=== PATIENT | female | born 1935 | race Caucasian/White ===

== ENCOUNTER → 2023-09-25 14:48 | Outpatient (REF) | payer MEDICARE, BC, SELFPAY | LOC: DHCBS HW 14:48 | PROVIDERS: ATTENDING PHYSICIAN Internal Medicine Cardiovascular Disease; FAMILY PHYSICIAN Family Medicine | DX: I35.0 Nonrheumatic aortic (valve) stenosis (principal) | CPT/HCPCS: 93306 ==

== ENCOUNTER → 2023-10-21 13:52 | Outpatient (REF) | payer MEDICARE, BC, SELFPAY | LOC: RAD 13:52 | PROVIDERS: ATTENDING PHYSICIAN Internal Medicine Cardiovascular Disease; FAMILY PHYSICIAN Family Medicine | DX: R09.89 Other specified symptoms and signs involving the circulatory and respiratory systems (principal) | CPT/HCPCS: 93880 ==

== ENCOUNTER → 2023-11-13 11:52 | Outpatient (REF) | payer MEDICARE, BC, SELFPAY ==
[2023-11-13 14:48] LABS: Hematocrit 35.7 % (37.0-47.0); Hemoglobin 11.9 g/dL (12.0-16.0); Mean Corp Hgb Conc. 33.3 g/dL (33.0-37.0); Mean Corpuscular Hgb 30.8 pg (27.0-31.0); Mean Corpuscular Volume 92.5 fL (81.0-99.0); Platelet Count 344 10^3/uL (130-400); Red Blood Cell Count 3.86 10^6/uL (4.20-5.40); Red Cell Dist. Width 13.3 % (11.5-14.5); White Blood Cell Count 7.8 10^3/uL (4.8-10.8)
[2023-11-13 15:27] LABS: ALT (SGPT) 18 U/L (0-35); AST (SGOT) 27 U/L (14-36); Albumin 4.2 g/dl (3.5-5.0); Alkaline Phosphatase 51 U/L (38-126); Blood Urea Nitrogen 27 mg/dl (7-17); Calcium 9.7 mg/dl (8.4-10.2); Carbon Dioxide 30 mmol/L (22-30); Chloride 100 mmol/L (98-107); Glucose 182 mg/dl (70-99); Potassium 4.7 mmol/L (3.5-5.1); Sodium 135 mmol/L (135-145); Total Bilirubin 0.5 mg/dl (0.2-1.3); Total Protein 7.1 g/dl (6.3-8.2); eGFR > 60.00
[2023-11-13 15:53] LABS: TSH 1.93 uIU/ml (0.47-4.68)
[2023-11-14 08:59] LABS: Glycohemoglobin (HgbA1c) 7.8 % (4.0-5.6)
== END ==
LOC: HWLAB 11:52
PROVIDERS: ATTENDING PHYSICIAN Physician Assistant; FAMILY PHYSICIAN Family Medicine
DX: E11.65 Type 2 diabetes mellitus with hyperglycemia (principal)
CPT/HCPCS: 36415; 80053; 83036; 84443; 85027

== ENCOUNTER → 2024-01-12 12:04 | Outpatient (REF) | payer MEDICARE, BC, SELFPAY | LOC: HWRAD 12:04 | PROVIDERS: ATTENDING PHYSICIAN Nurse Practitioner Family | DX: J06.9 Acute upper respiratory infection, unspecified (principal) | CPT/HCPCS: 71046 ==

== ENCOUNTER → 2024-03-18 12:16 | Outpatient (REF) | payer MEDICARE, BC, SELFPAY ==
[2024-03-18 16:10] LABS: Hematocrit 34.3 % (37.0-47.0); Hemoglobin 11.6 g/dL (12.0-16.0); Mean Corp Hgb Conc. 33.8 g/dL (33.0-37.0); Mean Corpuscular Volume 94.5 fL (81.0-99.0); Mean Platelet Volume 11.4 fL (7.4-10.4); Platelet Count 332 10^3/uL (130-400); Red Blood Cell Count 3.63 10^6/uL (4.20-5.40); Red Cell Dist. Width 12.9 % (11.5-14.5); White Blood Cell Count 8.7 10^3/uL (4.8-10.8)
[2024-03-18 16:14] LABS: ALT (SGPT) 20 U/L (0-35); AST (SGOT) 28 U/L (14-36); Albumin 4.1 g/dl (3.5-5.0); Alkaline Phosphatase 69 U/L (38-126); Blood Urea Nitrogen 22 mg/dl (7-17); Calcium 9.5 mg/dl (8.4-10.2); Carbon Dioxide 29 mmol/L (22-30); Chloride 99 mmol/L (98-107); Glucose 191 mg/dl (70-99); Potassium 4.7 mmol/L (3.5-5.1); Sodium 139 mmol/L (135-145); Total Bilirubin 0.5 mg/dl (0.2-1.3); Total Protein 6.7 g/dl (6.3-8.2); eGFR > 60.00
[2024-03-18 16:43] LABS: TSH 1.75 uIU/ml (0.47-4.68)
[2024-03-19 09:40] LABS: Glycohemoglobin (HgbA1c) 8.1 % (4.0-5.6)
== END ==
LOC: HWLAB 12:16
PROVIDERS: ATTENDING PHYSICIAN Physician Assistant; FAMILY PHYSICIAN Family Medicine
DX: E11.65 Type 2 diabetes mellitus with hyperglycemia (principal)
CPT/HCPCS: 36415; 80053; 83036; 84443; 85027

== ENCOUNTER → 2024-07-20 13:43 | Outpatient (REF) | payer MEDICARE, BC, SELFPAY ==
[2024-07-20 15:38] LABS: Hematocrit 35.7 % (37.0-47.0); Hemoglobin 11.3 g/dL (12.0-16.0); Mean Corp Hgb Conc. 31.7 g/dL (33.0-37.0); Mean Corpuscular Hgb 31.4 pg (27.0-31.0); Mean Corpuscular Volume 99.2 fL (81.0-99.0); Mean Platelet Volume 10.7 fL (7.4-10.4); Platelet Count 413 10^3/uL (130-400); Red Cell Dist. Width 13.3 % (11.5-14.5); White Blood Cell Count 8.2 10^3/uL (4.8-10.8)
[2024-07-20 15:57] LABS: ALT (SGPT) 25 U/L (0-35); AST (SGOT) 26 U/L (14-36); Albumin 4.2 g/dl (3.5-5.0); Alkaline Phosphatase 75 U/L (38-126); Blood Urea Nitrogen 18 mg/dl (7-17); Calcium 9.4 mg/dl (8.4-10.2); Carbon Dioxide 25 mmol/L (22-30); Chloride 99 mmol/L (98-107); Glucose 141 mg/dl (70-99); Potassium 4.6 mmol/L (3.5-5.1); Sodium 135 mmol/L (135-145); Total Bilirubin 0.5 mg/dl (0.2-1.3); eGFR > 60.00
[2024-07-21 08:58] LABS: Glycohemoglobin (HgbA1c) 7.6 % (4.0-5.6)
== END ==
LOC: HWLAB 13:43
PROVIDERS: ATTENDING PHYSICIAN Physician Assistant; FAMILY PHYSICIAN Family Medicine
DX: E11.65 Type 2 diabetes mellitus with hyperglycemia (principal)
CPT/HCPCS: 36415; 80053; 83036; 85027

== ENCOUNTER 2024-08-25 12:43 | Outpatient (RCR) | payer SELFPAY | END 2024-08-25 23:59 | disposition home or self-care (01) | LOC: ROT 12:43 | PROVIDERS: ATTENDING PHYSICIAN Family Medicine | DX: Z02.4 Encounter for examination for driving license (principal) ==

== ENCOUNTER → 2024-10-11 10:07 | Outpatient (REF) | payer MEDICARE, BC, SELFPAY | LOC: HWRAD 10:07 | PROVIDERS: ATTENDING PHYSICIAN Internal Medicine Critical Care Medicine; FAMILY PHYSICIAN Family Medicine | DX: R06.09 Other forms of dyspnea (principal) | CPT/HCPCS: 71250 ==

== ENCOUNTER → 2025-01-10 13:01 | Outpatient (REF) | payer MEDICARE, BC, SELFPAY | LOC: HWRCS 13:01 | PROVIDERS: ATTENDING PHYSICIAN Internal Medicine Cardiovascular Disease; FAMILY PHYSICIAN Family Medicine | DX: I35.0 Nonrheumatic aortic (valve) stenosis (principal); I34.2 Nonrheumatic mitral (valve) stenosis | CPT/HCPCS: 93306 ==

== ENCOUNTER → 2025-01-25 09:16 | Outpatient (REF) | payer MEDICARE, BC, SELFPAY ==
[2025-01-25 12:31] LABS: Hematocrit 30.7 % (37.0-47.0); Hemoglobin 10.1 g/dL (12.0-16.0); Mean Corp Hgb Conc. 32.9 g/dL (33.0-37.0); Mean Corpuscular Volume 96.8 fL (81.0-99.0); Platelet Count 388 10^3/uL (130-400); Red Cell Dist. Width 13.4 % (11.5-14.5)
[2025-01-25 12:43] LABS: ALT (SGPT) 19 U/L (0-35); AST (SGOT) 20 U/L (14-36); Albumin 4.1 g/dl (3.5-5.0); Alkaline Phosphatase 59 U/L (38-126); Blood Urea Nitrogen 20 mg/dl (7-17); Calcium 9.1 mg/dl (8.4-10.2); Carbon Dioxide 28 mmol/L (22-30); Chloride 103 mmol/L (98-107); Glucose 229 mg/dl (70-99); Potassium 5.0 mmol/L (3.5-5.1); Sodium 136 mmol/L (135-145); Total Protein 6.7 g/dl (6.3-8.2); eGFR > 60.00
[2025-01-25 13:01] LABS: Glycohemoglobin (HgbA1c) 7.8 % (4.0-5.6)
== END ==
LOC: HWLAB 09:16
PROVIDERS: ATTENDING PHYSICIAN Physician Assistant; FAMILY PHYSICIAN Family Medicine
DX: E11.65 Type 2 diabetes mellitus with hyperglycemia (principal)
CPT/HCPCS: 36415; 80053; 83036; 85027

== ENCOUNTER 2025-02-17 12:42 | Inpatient (IN) | payer MEDICARE, BC, SELFPAY ==
[2025-02-17] VITALS (8 sets, daily range): BP systolic 111–142; BP diastolic 55–64; BMI 21.1; BMI 20.2
[2025-02-17 07:44] LABS: Glucose - Point of Care 275 mg/dl (70-99)
--- NOTE | 2025-02-17 08:31 | ED.GENMED ---
History of Present Illness
General
Chief Complaint: Weakness
Source: patient and family (Daughter at bedside)
Exam Limitations: none
Time Seen by Provider: 02/17/25 08:00
Nursing documentation reviewed up to this point in time: agreed with
History of Present Illness
History of Present Illness:
Patient is an 89-year-old female with history of hypertension, insulin-dependent diabetes who presents to the emergency department for evaluation of headache, lightheadedness, and shortness of breath over the past few days. She reports worsening
shortness of breath over the past few days, especially when laying flat as well as a productive cough with yellow-colored sputum. Patient states that she has had intermittent lightheadedness and nausea over the past few days. She has felt somewhat
unsteady on her feet and feels like she is walking 'like a drunk adoption agent'. She denies any spinning sensation or dizziness however does have a headache.
Patient denies any known fevers. No exertional chest pain. No lower leg swelling or edema.
She is an insulin-dependent diabetic and states that her sugars have been running high over the past few days.
She does have a history of heart failure however has not noticed any recent weight changes or swelling in her lower extremities.
Patient lives at home with her daughter.
Past History
Past History
ED Past Medical History: HTN, NIDDM, Psychiatric (Anxiety) and Other (Hepatitis A)
ED Past Surgical History: Appendectomy, Cholecystectomy and Gynecological (HYSTERECTOMY)
Social History
Tobacco: Non-smoker
Alcohol: None
Drug: None
Personal:
Living: with family
Family History
Family History: Other (Reviewed and noncontributory)
Review of Systems
Review of Systems
Allergies reviewed?: Yes
All Other Systems: ROS reviewed and negative except as documented in HPI and ROS
Phy Exam
Physical Exam
Physical Exam:
Vitals: Hypoxic to 87% on room air. Mildly hypertensive. Afebrile
General: Patient is in no distress.
Skin: Warm and dry, no rashes or lesions
Head: Normocephalic, atraumatic
Eyes: Sclera nonicteric. EOMs intact. No nystagmus.
Throat: Dry mucous membranes. Protecting airway
Neck: Normal ROM, no cervical spine tenderness, no meningismus
Cardiac: Regular rate and rhythm, no murmurs. Systolic ejection murmur noted
Pulm: Hypoxic, placed on 3 L nasal cannula. Coarse breath sounds bilaterally. No wheeze.
Abdomen: Abdomen soft and nontender.
Extremities: No evidence of cyanosis or edema. 2+ palpable DP pulses bilaterally
Neuro: AAOx3. Grossly intact.
Psychiatric: Normal affect.
Sepsis
Sepsis Screening
Sepsis Assessment: Sepsis Ruled Out
Sepsis Screen
Sepsis Screen: Sepsis Ruled Out
Date: 02/17/25
Time: 19:07
Course
Orders/Labs/Results
Orders:
Orders
02/17/25 07:58
Complete Blood Count/With Diff Urgent
Comprehensive Metabolic Panel Urgent
02/17/25 08:01
CR Chest - 2 Views Urgent
Comment:
Reason For Exam: suspected infection
02/17/25 08:11
EKG [Electrocardiogram (*1)] Urgent
Reason for Study: Chest Pain
EKG- Treatment ONCE
02/17/25 08:18
Acetaminophen [Tylenol] 650 mg PO NOW STA
02/17/25 08:19
CT Head W/o Iv Contrast Urgent
Comment:
Reason For Exam: Headache, ataxia
02/17/25 08:25
COVID-19 Antigen Urgent
Source: Nasal Swab
NT-proBNP Urgent
Troponin I Urgent
Influenza A+B Rapid Molecular Urgent
ANNA Source: Nasal Swab
Specimen Description:
02/17/25 Lunch
1800 calorie (15 carb) Diabetic
At Your Request: Limited Participation
Does patient need a safe tray?: No
02/17/25 10:04
Aztreonam [Azactam] 2,000 mg IV NOW STA
02/17/25 10:57
Urinalysis Reflex To Culture Urgent
Date Specimen was Collected: 02/17/25
Time Specimen was Collected: 10:56
Urine Microscopic Reflex Cult Urgent
02/17/25 11:13
Clindamycin 600 mg/50 ml [Cleocin] 600 mg in 50 ml IV NOW
02/17/25 12:03
CefTRIAXone [Rocephin] 1,000 mg IV NOW STA
02/17/25 12:08
Furosemide [Lasix] 40 mg IV NOW STA
02/17/25 12:09
Admit/Transfer Patient As Directed
Co-Sign Provider:
Level of Care: Inpatient admission
Assign to:: Medical/Surgical
Physician / Group: Dr. Johnson
Diagnosis: Sepsis
Reason for Hospitalization: Sepsis Pneumonia
Expected length of stay greater than two midnights?: Yes
ELOS- Estimated Length of Stay in days: 3
I certify the patient meets the requirements for IP care: Yes
PRN Pain Medication Management As Directed
May give lesser potent ordered pain med per pt: Yes
preference::
Protocol:: Medication orders for pain may be administered in a
manner that supports deferring to patient preference
when the pt is:
- Requesting an ordered lesser potent pain medication.
Least to most potent pain medications are defined
as: acetaminophen < NSAID < tramadol < opioids
(morphine, oxycodone, hydromorphone).
- Requesting a lesser dose of the same medication IF
ORDERED.
- Requesting a less intrusive route of administration
if both routes are prescribed by the provider (PO <
IV).
02/17/25 12:12
Code Status As Directed
Resuscitation Status: Do not resuscitate
Reached after discussion with pt or family/Healthcare POA: Yes
DNR Bracelet Application ONCE
02/17/25 12:20
Blood Culture Q30M
ANNA Source: Blood/Venous
Specimen Description:
Comment: IF NOT OBTAINED IN ED
Blood Culture Q30M
ANNA Source: Blood/Venous
Specimen Description:
Comment: IF NOT OBTAINED IN ED
02/17/25 12:27
Sterile Water [Sterile Water For Injection] 10 ml .ROUTE .STK-MED ONE
02/17/25 13:52
Acetaminophen [Tylenol] 650 mg PO Q4HPRN PRN
Albuterol [ProAIR HFA INHALER] 2 puff INH R Q6HPRN PRN sob
Bisacodyl [Dulcolax] 10 mg RECTAL [id number] PRN
Dextrose 50%-Water [Dextrose 50% Syringe] 12.5 grams IV [id number] PRN
Docusate W/Senna [Senokot-S] 1 tablet PO BIDPRN PRN
Glucagon [GlucaGen] 1 mg IM PRN PRN
Ondansetron Injectable [Zofran] 4 mg IV Q6HPRN PRN
Polyethylene Glycol Powder [Miralax] 17 grams PO DAILYPRN PRN
insulin glargine [Lantus Solostar U-100 Insulin] 13 unit SC DAILY
02/17/25 13:52
Activity As Directed
Activity Level: As Tolerated
Bedside Glucose Monitoring As Directed
Frequency: AC&HS
Additional Instructions:: Change to q6h if pt on TPN, tube feeding or not eating
Intake/ Output As Directed
Frequency: Per unit guidelines
Vital Signs As Directed
Frequency: Per unit guidelines
Wound Care As Directed
Location of Wound: R ankle
Treatment of Wound: Cleanse and bandage
O2 Therapy [RESP] Routine
Titrate/Wean O2 to maintain O2 sat greater than (%): 92
Pulse Ox/spot Check [RESP] Routine
Quantity: 1
Special Instructions: pulse oximetry on admision then every shift if on oxygen
call if oxygen saturation < ___ %
DX Deep Vein Thrombosis Video Routine
02/17/25 16:30
Insulin Aspart Corrective Low [Novolog Flexpen-Low Resistance] See Protocol SC AC
02/17/25 18:00
Atorvastatin [Lipitor] 20 mg PO QPM
Enoxaparin Sodium [Lovenox] 40 mg SC QPM
02/17/25 20:00
Budesonide/Formoterol 160/4.5 [Symbicort 160/4.5 Mcg Inhaler] 2 puff INH R BID
Carvedilol [Coreg] 3.125 mg PO BID
02/17/25 22:00
Losartan [Cozaar] 25 mg PO HS
02/18/25 06:00
Basic Metabolic Panel IN AM
Complete Blood Count/With Diff IN AM
Glycohemoglobin (HgbA1c) IN AM
Lactic Acid IN AM
02/18/25 08:00
Fluoxetine HCl [Prozac] 40 mg PO DAILY
Abnormal Lab Results
02/17/25 02/17/25 02/17/25
07:43 07:58 10:57
WBC 15.1 H 10^3/uL
(4.8-10.8)
RBC 2.75 L 10^6/uL
(4.20-5.40)
Hgb 8.9 L g/dL
(12.0-16.0)
Hct 25.9 L %
(37.0-47.0)
MCH 32.4 H pg
(27.0-31.0)
Plt Count 429 H 10^3/uL
(130-400)
MPV 10.6 H fL
(7.4-10.4)
Abs Immat Gran (auto) 0.1 H 10^3/uL
(0-0.05)
Absolute Neuts (auto) 12.4 H 10^3/uL
(1.4-6.5)
Absolute Lymphs (auto) 0.9 L 10^3/uL
(1.2-3.4)
Absolute Monos (auto) 1.6 H 10^3/uL
(0.1-0.6)
Neutrophils % 82.4 H %
(42.2-75.2)
Lymphocytes % 6.0 L %
(20.5-51.1)
Monocytes % 10.5 H %
(1.7-9.3)
Sodium 132 L mmol/L
(135-145)
Glucose 271 H mg/dl
(70-99)
Calcium 8.3 L mg/dl
(8.4-10.2)
Urine Ketones 3+ A
(Negative)
Urine Bacteria (Reflex) Few A
(Negative)
Urine Glucose 4+ A
(Negative)
Urine Albumin (Reflex) 2+ A
(Neg - Trace)
POC Glucose 275 H mg/dl
(70-99)
02/17/25 07:58
02/17/25 07:58
Vital Signs
Initial and Last Documented VS:
Initial Vital Signs
Temp Pulse Resp BP Pulse Ox
99.1 F 89 18 140/59 95
02/17/25 07:40 02/17/25 07:40 02/17/25 07:40 02/17/25 07:40 02/17/25 07:40
Last Documented Vital Signs
Temp Pulse Resp BP Pulse Ox
100.2 F 90 16 142/64 96
02/17/25 18:26 02/17/25 14:03 02/17/25 14:03 02/17/25 14:03 02/17/25 14:16
MDM/Problems Addressed
Differential Diagnosis Includes:
Not limited to: Acute CHF exacerbation, bronchitis, pneumonia, acute dehydration, orthostatic hypotension, viral illness, etc.
MDM/Problems Addressed:
89-year-old female presenting with generalized weakness, lightheadedness, shortness of breath over the past few days. No known fever. She does have productive cough. No exertional or pleuritic chest pain. On arrival�patient hypoxic to 87% on
room air and placed on 3 L NC. She is afebrile with otherwise stable vital signs. Lung exam with coarse breath sounds bilaterally however no wheeze. Regular rate and rhythm with normal heart sounds. Abdomen benign. No focal neurologic deficits
noted. No lower extremity edema noted.
Differential broad. Concern for possible infectious etiology including pneumonia, bronchitis. Other considerations would be CHF exacerbation, dehydration, etc. ED plan: Labs, cardiac enzymes, proBNP. Will obtain UA. Will check viral studies,
chest x-ray and head CT given headache
Update: Labs significant for leukocytosis of 15.1 with anemia and hemoglobin of 8.9 which is subtle drop from prior. Chemistry with hyperglycemia noted. Troponin undetectable. proBNP of 3380. Chest x-ray reveals diffuse bilateral pneumonia.
Head CT without acute findings.
Overall impression is likely bilateral pneumonia requiring supplemental O2. Patient will require admission to hospital for IV antibiotics, continued supportive oxygen therapy. Patient with multiple allergies�will start a aztreonam and clindamycin.
Possible mild CHF exacerbation as well however no evidence of fluid overload on exam�will hold diuretics at this time.
Patient accepted to hospitalist service in stable condition
Chronic conditions affecting care:
Hypertension, insulin-dependent diabetes
Acute Exacerbation and/or Progression of Chronic Illness:
Acutely hypertensive, acutely hyperglycemic
*Radiology
Radiology exam reviewed: preliminary read by ED provider (Chest x-ray reviewed by fl-pulmonary edema and suspected left lower lobe pneumonia) and radiology read reviewed
*Pulse Oximetry
SaO2: 95
Nasal Cannula flow liters per minute: 2
Patient hypoxic: yes
*EKG
Interpreted by ED Provider?: Yes
EKG Intrepretation Date: 02/17/25
Interpretation: abnormal
Comparison EKG: no changes
Heart Rate: 85
Rate: normal
Rhythm: sinus
Wing: left axis deviation
Interval: normal QT interval
QRS Pattern: right bundle branch block
Ischemia: no ischemia
*Char Filter Tank Tender Interpretation
Rate: normal
Interpretation: normal
Heart Rate: 88
Rhythm: sinus
*Critical Care Note
Total Time (30-74mins, 75-104mins- exclusive of procedures): Not Applicable
Patient Management
Discussion with other providers: Hospitalist
Escalation/DeEscalation of care consider admission/obs:
Admit to hospitalist for IV antibiotics, O2 supplementation
ED Attending Note
-
Portions of this chart may have been created with voice recognition software.� Occasional wrong word or��sound alike� substitutions may have occurred due to the inherent limitations of voice recognition software.
Discharge Plan
Departure
Patient Disposition: Admit
Date of Disposition: 02/17/25
Time of Disposition: 10:10
Presentation/result/management discussed w/ accepting MD/DO: Hospitalist
Discharge Problem:
Community acquired pneumonia, Acute hypoxic respiratory failure
Interventions
Interventions:
*ED COVID-19 Vaccine History Last Done: 02/17/25 17:48
*Nursing Disposition Last Done: 02/17/25 13:19
Discharge Date and Time
Discharge Date/Time: 02/17/25 13:38
[2025-02-17] MEDS: TYLENOL 650 MG PO ×2 (08:42→17:27)
[2025-02-17 08:46] LABS: Hematocrit 25.9 % (37.0-47.0); Hemoglobin 8.9 g/dL (12.0-16.0); Mean Corp Hgb Conc. 34.4 g/dL (33.0-37.0); Mean Corpuscular Volume 94.2 fL (81.0-99.0); Nucleated Red Blood Cells % 0 %; Platelet Count 429 10^3/uL (130-400); Red Cell Dist. Width 12.8 % (11.5-14.5)
[2025-02-17 09:03] LABS: COVID-19 Antigen Negative (Negative)
[2025-02-17 09:15] LABS: Troponin I < 0.012 ng/ml
[2025-02-17 09:19] LABS: ALT (SGPT) 17 U/L (0-35); AST (SGOT) 23 U/L (14-36); Albumin 3.5 g/dl (3.5-5.0); Alkaline Phosphatase 63 U/L (38-126); Blood Urea Nitrogen 15 mg/dl (7-17); Calcium 8.3 mg/dl (8.4-10.2); Carbon Dioxide 23 mmol/L (22-30); Chloride 102 mmol/L (98-107); Estimated Creatinine Clearance 55 ml/min; Glucose 271 mg/dl (70-99); Potassium 4.1 mmol/L (3.5-5.1); Sodium 132 mmol/L (135-145); Total Protein 6.4 g/dl (6.3-8.2); eGFR > 60.00
[2025-02-17 11:11] LABS: Urine Character Clear (Clear)
[2025-02-17 11:47] LABS: Urine Red Blood Cell 0-2 /HPF (0-2); Urine White Cell 0-2 /HPF (0-5)
--- NOTE | 2025-02-17 12:27 | HPS.HSE ---
Family Physician
-
Family Physician: Vicky Flaherty
Chief Complaint
-
Difficulty Breathing
History of Present Illness
84-year-old female with diabetes type 2, HTN, HLD, CHF R EF presents with progressive worsening of shortness of breath. Patient has been feeling poorly for the past several days after [place]
takeout and fast food, she has been noticing intermittent difficulty breathing that resolves with rest, headache, nausea, ear pressure, and was told she looked pale, which she has been treating as a 'bug' with conservative measures. She has chronic
bronchitis however has noticed her cough has become dry. She also noted feeling feverish, chills and sweats, and she took Tylenol with relief. However last night she developed dyspnea after walking down the stairs as well as 2+ pillow orthopnea,
and this morning had significant difficulty breathing and came to the ER. Her daughter is at bedside and notes that she did not visit the doctor for any of this because she felt that she was improving until today.
Medical History
Past Medical History
Past Medical History: Reports Other
Additional Past Medical History:
DM2
Retinopathy
HTN
HLD
Lumbar spinal stenosis
Anxiety
Allergic rhinitis
CHF EF 35 to 40%
Asthma or COPD
Past Surgical History: Reports Other
Additional Past Surgical History:
Vaginal hysterectomy and BSO
Appendectomy
Cholecystectomy
Right ankle fusion and screws
Mohs surgery to ankle
Social History
Tobacco: Other (Significant secondhand smoke exposure from her father)
Alcohol: None
Drug: None
Living: Alone
Employment: Retired (Worked at [employer])
Family History
Family History: Other (Father emphysema, mother of cancer in her 60s)
Allergies / Home Medications
Allergies reflects when Allergies were last updated in [email or web address].
Home Medications with original date entered in [email or web address]
Allergy/Medication List:
Allergies
Allergy/AdvReac Type Severity Reaction Status Date / Time
zinc Allergy Unknown Unknown Verified 02/17/25 07:55
Cephalosporins Allergy Hives Verified 02/17/25 07:55
lisinopril Allergy COUGH Verified 02/17/25 07:55
penicillin G Allergy Hives Verified 02/17/25 07:55
Penicillins Allergy Hives Verified 02/17/25 07:55
Home Medications
repaglinide 2 mg tablet 3 mg PO MEALS Diabetes 09/16/20
atorvastatin 20 mg tablet 20 mg PO QPM High cholesterol #30 tabs 09/21/20
carvedilol 3.125 mg tablet 3.125 mg PO BID Heart Failure #30 tabs 09/21/20
losartan 25 mg tablet 25 mg PO HS Heart Failure #30 tabs 09/21/20
metformin 1,000 mg tablet 1,000 mg PO BID Diabetes ##0 10/11/20
albuterol sulfate 90 mcg/actuation aerosol inhaler 2 puff inhalation R Q6HPRN PRN sob 02/17/25
fluoxetine 40 mg capsule 40 mg PO DAILY 02/17/25
fluticasone furoate 200 mcg-vilanterol 25 mcg/dose inhalation powder (Breo Ellipta) 1 inh inhalation R DAILY 02/17/25
insulin glargine 100 unit/mL (3 mL) subcutaneous pen (Lantus Solostar U-100 Insulin) 13 unit SC DAILY 02/17/25
Review of Systems
-
A 12 point ROS was completed and negative except as noted: Yes
Constitutional: Reports Fever and Chills; Denies Weight Gain or Weight Loss
EENT: Denies Sore Throat or Runny Nose
Respiratory: Reports Cough and Trouble Breathing
Cardiac: Denies Chest Pain or Palpitations
Abdomen/GI: Denies Abdominal Pain, Vomiting or Diarrhea
: Denies Dysuria
Skin: Reports Other (Ankle wound is healing well)
Neurological: Reports Headache
Physical Exam
Vital Signs
Vital Signs
Temp Pulse Resp BP Pulse Ox
99.1 F 79 26 127/61 98
02/17/25 07:40 02/17/25 10:45 02/17/25 10:45 02/17/25 08:00 02/17/25 10:45
Physical Exam
General: No Apparent Distress
HEENT: Anicteric, Moist mucous membranes, PERRLA and Neck Nontender
Respiratory: Rales (At the bases), Crackles and Non Labored Respirations; No Wheezes
Cardiac: Irregular Rhythm and Murmur
GI: Soft, Non Tender, Non Distended and Normal Bowel Sounds
Musculoskeletal: No Edema
Skin: Warm, Dry and Lesions (Bandage over Mohs surgery area on ankle); No Rash or Ulcers
Neuro: Awake and AO x 3
Psych: Calm
Laboratory Results
-
02/17/25 07:58
02/17/25 07:58
Laboratory Results
Total Bilirubin 0.8 mg/dl (0.2-1.3) 02/17/25 07:58
AST 23 U/L (14-36) 02/17/25 07:58
ALT 17 U/L (0-35) 02/17/25 07:58
Alkaline Phosphatase 63 U/L (38-126) 02/17/25 07:58
Troponin I < 0.012 ng/ml 02/17/25 08:25
Data Reviewed
-
Diagnostic Radiology: Image Personally Visualized and interpreted, Discussed with Patient and Discussed with Family
Lab Data: Labs Reviewed by me, Discussed with Patient and Discussed with Family
Impression/Plan
-
IMPRESSION:
89-year-old female with DM 2, CHF, HTN, HLD, asthma/COPD who presents with difficulty breathing, found to have pneumonia.
PLAN:
1. Sepsis secondary to pneumonia
Hypoxia
CXR shows pneumonia, patient with leukocytosis and tachycardia
Blood cultures x 2
Empiric antibiotics with ceftriaxone, azithromycin. Patient's listed penicillin allergy was as a child and she did not remember her reaction. Per guidelines safe to initiate ceftriaxone
Check lactate
O2 per protocol, wean as able
2. Acute decompensated CHF
Per chart last EF 35 to 40% in 2020
Pro�BNP 3800
Edema on CXR
Initiate IV Lasix 40 mg once daily, monitor weights, I's and O's
Check echo
3. Anemia
Normocytic, could be secondary to sepsis. Check anemia panel.
4. Hyponatremia
Mild, asymptomatic continue to monitor
5. DM 2 with hyperglycemia
Patient had not yet taken her insulin this morning
Resume home Lantus 13 units in a.m.
Hold metformin and other orals
Sliding scale insulin
6. HTN
BP controlled, continue home meds
7. Asthma/COPD
Patient unclear on her diagnosis but she has history of secondhand smoke and has chronic bronchitis
Continue home Breo and albuterol
Patient is DNR, confirmed with her and her daughter at bedside
DVT PPx�Lovenox
[2025-02-17] MEDS: LASIX 40 MG IV (13:32)
[2025-02-17] MEDS: ROCEPHIN 1000 MG IV (13:32)
--- NOTE | 2025-02-17 14:20 | TRANSFER ---
pt arrived from ED via stretcher accompanied by staff. pt ambulated from stretcher to bed with standby assist. pt AAOx3, forgetful at times. bed alarm placed. VSS. 96% on 3L. no complaints at this time. plan of care ongoing.
[2025-02-17] MEDS: ZITHROMAX 500 MG IV (15:34)
[2025-02-17 16:54] LABS: Glucose - Point of Care 377 mg/dl (70-99)
[2025-02-17] MEDS: NOVOLOG FLEXPEN-LOW RESISTANCE 5 UNITS SC (17:21)
[2025-02-17] MEDS: LOVENOX 40 MG SC (17:21)
[2025-02-17] MEDS: LIPITOR 20 MG PO (17:22)
[2025-02-17] MEDS: ZOFRAN 4 MG IV (17:26)
[2025-02-17] MEDS: SYMBICORT 160/4.5 MCG INHALER 2 PUFF INH (19:36)
[2025-02-17] MEDS: COREG 3.125 MG PO (20:23)
[2025-02-17] MEDS: COZAAR 25 MG PO (20:24)
[2025-02-17 21:25] LABS: Glucose - Point of Care 400 mg/dl (70-99)
[2025-02-17 22:15] LABS: Glucose 353 mg/dl (70-99)
[2025-02-17] MEDS: NOVOLOG FLEXPEN 5 UNITS SC (22:27)
[2025-02-18 00:12] LABS: Glucose - Point of Care 294 mg/dl (70-99)
[2025-02-18] MEDS: TYLENOL 650 MG PO (04:57)
[2025-02-18 06:00] VITALS: BMI 19.7
[2025-02-18 07:00] VITALS: BP 131/62
[2025-02-18] MEDS: SYMBICORT 160/4.5 MCG INHALER 2 PUFF INH ×2 (07:51→19:35)
[2025-02-18 08:01] LABS: Glucose - Point of Care 348 mg/dl (70-99)
[2025-02-18] MEDS: NOVOLOG FLEXPEN-LOW RESISTANCE 4 UNITS SC (08:19)
[2025-02-18] MEDS: COREG 3.125 MG PO ×2 (08:19→20:03)
[2025-02-18] MEDS: LANTUS 0.13 UNITS SC (08:19)
[2025-02-18] MEDS: PROZAC 40 MG PO (08:19)
[2025-02-18 09:29] LABS: Hematocrit 24.4 % (37.0-47.0); Hemoglobin 8.3 g/dL (12.0-16.0); Mean Corp Hgb Conc. 34.0 g/dL (33.0-37.0); Mean Corpuscular Volume 92.8 fL (81.0-99.0); Nucleated Red Blood Cells % 0 %; Platelet Count 420 10^3/uL (130-400); Red Cell Dist. Width 12.7 % (11.5-14.5)
[2025-02-18 09:53] LABS: Blood Urea Nitrogen 14 mg/dl (7-17); Calcium 7.8 mg/dl (8.4-10.2); Carbon Dioxide 26 mmol/L (22-30); Chloride 101 mmol/L (98-107); Estimated Creatinine Clearance 54 ml/min; Glucose 295 mg/dl (70-99); Potassium 3.3 mmol/L (3.5-5.1); Sodium 133 mmol/L (135-145); eGFR > 60.00
[2025-02-18 11:07] VITALS: BP 93/52
[2025-02-18 12:32] LABS: Glucose - Point of Care 298 mg/dl (70-99)
[2025-02-18] MEDS: KCL 40 MEQ PO (12:32)
[2025-02-18] MEDS: MUCINEX 600 MG PO ×2 (12:32→20:03)
[2025-02-18] MEDS: LASIX 40 MG IV (12:32)
[2025-02-18] MEDS: NOVOLOG FLEXPEN-LOW RESISTANCE 3 UNITS SC ×2 (12:33→17:28)
--- NOTE | 2025-02-18 13:36 | W.PN.HOSP.TC ---
Today's Communication/Plan
-
Mild improvement
Continue IV antibiotics and wean oxygen as able
Assessment / Plan
Assessment / Plan
89-year-old female with DM 2, CHF, HTN, HLD, asthma/COPD who presents with difficulty breathing, found to have pneumonia.
PLAN:
1. Sepsis secondary to pneumonia
Hypoxic RF
CXR shows pneumonia, patient with leukocytosis and tachycardia
Blood cultures x 2 NGTD. Flu negative. COVID negative.
Empiric antibiotics with ceftriaxone, azithromycin. Patient's listed penicillin allergy was as a child and she did not remember her reaction. Had no issue with ceftriaxone overnight.
lactate WNL
O2 per protocol, wean as able. Stiill requiring.
Supportive care with IS and mucinex.
2. Acute decompensated CHF
Echo reviewed 01/2025, mod MS/mild MR, Mild , no RWMA
Pro�BNP 3800
Edema on CXR
IV Lasix 40 mg once daily, monitor weights, I's and O's
3. Anemia
Normocytic, could be secondary to sepsis. Check anemia panel.
4. Hyponatremia
Mild, asymptomatic continue to monitor
5. DM 2 with hyperglycemia
Continue home Lantus 13 units.
Hold metformin and other orals
Sliding scale insulin
6. HTN
BP controlled, continue home meds
7. Asthma/COPD
Patient unclear on her diagnosis but she has history of secondhand smoke and has chronic bronchitis
Continue home Breo and albuterol
Patient is DNR
DVT PPx�Lovenox
Anticipated Discharge: > 48 hours
Subjective/Interval History
-
Date of Service: February 18, 2025
Patient had dyspneic event overnight which resolved with nebs. She still feels orthopneic and has a cough.
Objective Data
-
Labs:
Laboratory Results
02/18/25
09:08
WBC 13.8 H
Hgb 8.3 L
Hct 24.4 L
Plt Count 420 H
Sodium 133 L
Potassium 3.3 L
Chloride 101
Carbon Dioxide 26
BUN 14
Creatinine 0.6
Glucose 295 H
Calcium 7.8 L
Vital Signs:
Vital Signs
Temp Pulse Resp BP Pulse Ox
97.7 F 85 16 130/70 88
02/18/25 11:07 02/18/25 12:32 02/18/25 11:07 02/18/25 12:32 02/18/25 11:07
I&O
02/17/25 02/18/25 02/19/25
06:59 06:59 06:59
Intake Total 1100 / 1100
Balance 1100 / 1100
Review of Systems
-
All other systems: Reviewed and negative
Physical Exam
-
General: No Apparent Distress
HEENT: Moist Mucous Membranes, Anicteric and PERRLA
Respiratory: Rales and Crackles; Negative Wheezes or Rhonchi
Cardiac: Regular Rhythm and S1/S2; Negative Murmur, Rub or Gallop
GI: Soft, Nontender, Nondistended and Normal Bowel Sounds
Musculoskeletal: No Edema
Skin: Warm and Dry; Negative Rash, Ulcers or Lesions
Neuro: Awake and AO x 3
Hematologic / Lymphatic: No Lymphadenopathy
Psych: Calm
Data Reviewed
-
Diagnostic Radiology: Image personally visualized and interpreted
Labs: Labs Reviewed by me and Discussed with Patient
[2025-02-18] MEDS: ZOFRAN 4 MG IV (14:46)
[2025-02-18] MEDS: STERILE WATER FOR INJECTION 10 ML IV (14:52)
[2025-02-18] MEDS: ROCEPHIN 1000 MG IV (14:52)
[2025-02-18 15:00] VITALS: BP 122/71
[2025-02-18] MEDS: ZITHROMAX INFUSION 250 IV (16:21)
--- NOTE | 2025-02-18 17:04 | CM ---
Addendum entered by PILI North 02/18/25 17:31:
Daughter's number as patient would like for her to be contacted and involved in d/c planning, Ned [phone]. Her friend who was at bedside is Gia, .
Original Note:
Met with patient and her friend at bedside. Patient stated that she lives with her spouse in a two story house with two steps to enter. She described herself as independent with all of her ADLs, personal care, dressing and bathing. She tries to take
care of the house as best as she can. She stated that she is providing care for her spouse however she is also declining in her ability to independently take care of herself. She relayed that she and her spouse are in the midst of completing
applications for assisted living. Patient denied any DME. She has never had VN or been to a SNF.
Patient has a prescription plan and uses, [facility].
Her PCP is, Vicky Flaherty.
Patient expressed that she does not feel that she will be able to return home at discharge. She was anxious and tearful. She is agreeable to discussing SNF. Will review evals when available from medical staff.
Relayed to RN that patient is very anxious.
Plan: Case management will continue to follow and assist with discharge planning. Most likley SNF.
[2025-02-18] MEDS: PHENERGAN 25 MG PO (17:26)
[2025-02-18] MEDS: LOVENOX 40 MG SC (17:27)
[2025-02-18] MEDS: LIPITOR 20 MG PO (17:28)
[2025-02-18 17:33] LABS: Glucose - Point of Care 268 mg/dl (70-99)
[2025-02-18 19:55] VITALS: BP 119/55
--- NOTE | 2025-02-18 20:00 | PTCARENOTE ---
pt with increased WOB and a feeling of heaviness in chest at change of shift. pt oxygen increased to 6L, satting between 90-94%. BP 119/55, HR 101, temp 98.5, RR 25. CHIEF TECHNOLOGY OFFICER up to floor to see pt. order for duoneb. pt with much improvement after
breathing tx. will continue to monitor closely.
[2025-02-18] MEDS: DUONEB 3 ML INH (20:13)
[2025-02-18] MEDS: COZAAR 25 MG PO (21:19)
[2025-02-18 22:03] LABS: Glucose - Point of Care 326 mg/dl (70-99)
[2025-02-18] MEDS: NOVOLOG FLEXPEN 4 UNITS SC (22:38)
[2025-02-18 23:15] VITALS: BP 106/53
[2025-02-19 00:13] LABS: Glucose - Point of Care 293 mg/dl (70-99)
[2025-02-19 03:42] LABS: Glucose - Point of Care 234 mg/dl (70-99)
[2025-02-19 06:00] VITALS: BMI 19.6
[2025-02-19 07:10] VITALS: BP 103/57
[2025-02-19] MEDS: SYMBICORT 160/4.5 MCG INHALER 2 PUFF INH (07:44)
[2025-02-19 08:00] LABS: Hematocrit 27.4 % (37.0-47.0); Hemoglobin 9.2 g/dL (12.0-16.0); Mean Corp Hgb Conc. 33.6 g/dL (33.0-37.0); Mean Corpuscular Volume 93.5 fL (81.0-99.0); Nucleated Red Blood Cells % 0 %; Platelet Count 451 10^3/uL (130-400); Red Cell Dist. Width 12.7 % (11.5-14.5)
[2025-02-19 08:26] LABS: Glucose - Point of Care 295 mg/dl (70-99)
[2025-02-19 08:29] LABS: ALT (SGPT) 27 U/L (0-35); AST (SGOT) 39 U/L (14-36); Albumin 3.5 g/dl (3.5-5.0); Alkaline Phosphatase 78 U/L (38-126); Blood Urea Nitrogen 13 mg/dl (7-17); Calcium 7.4 mg/dl (8.4-10.2); Carbon Dioxide 24 mmol/L (22-30); Chloride 94 mmol/L (98-107); Estimated Creatinine Clearance 54 ml/min; Glucose 223 mg/dl (70-99); Potassium 3.5 mmol/L (3.5-5.1); Sodium 129 mmol/L (135-145); Total Protein 6.3 g/dl (6.3-8.2); eGFR > 60.00
[2025-02-19 08:39] LABS: Total Iron Binding Capacity 229 ug/dl (265-497)
[2025-02-19 08:45] VITALS: BP 103/57
[2025-02-19 08:46] LABS: TSH 0.82 uIU/ml (0.47-4.68)
[2025-02-19 08:50] LABS: Ferritin 197.0 ng/ml (11.1-264.0)
[2025-02-19 08:52] LABS: Iron < 20 ug/dl (37-170)
[2025-02-19] MEDS: PROZAC 40 MG PO (09:04)
[2025-02-19] MEDS: LASIX 40 MG IV (09:04)
[2025-02-19] MEDS: COREG 3.125 MG PO ×2 (09:04→20:04)
[2025-02-19] MEDS: MUCINEX 600 MG PO ×2 (09:04→20:04)
[2025-02-19] MEDS: NOVOLOG FLEXPEN-LOW RESISTANCE 2 UNITS SC (09:05)
[2025-02-19] MEDS: LANTUS 0.13 UNITS SC (09:05)
[2025-02-19] MEDS: TYLENOL 650 MG PO (09:12)
[2025-02-19 09:21] LABS: Folate > 20.0 ng/ml (2.76-20); Vitamin B12 908 pg/ml (239-931)
[2025-02-19] MEDS: DECADRON 6 MG IV (10:17)
--- NOTE | 2025-02-19 10:50 | W.PN.HOSP.TC ---
Today's Communication/Plan
-
Start systemic steroid
Start nebulizing treatment standing and as needed
Holding diuretic
Check CT of the chest
Pulmonary input
Wean O2 as tolerated
Assessment / Plan
Assessment / Plan
89-year-old female with DM 2, CHF, HTN, HLD, asthma/COPD who presents with difficulty breathing, found to have pneumonia.
PLAN:
#Sepsis secondary to pneumonia
#Acute hypoxic respiratory failure
#History of secondhand smoking exposure/chronic bronchitis
# Suspected obstructive pulmonary disease with flareup
CXR shows pneumonia, patient with leukocytosis and tachycardia
Blood cultures x 2 NGTD. Flu negative. COVID negative.
Empiric antibiotics with ceftriaxone, azithromycin.
lactate WNL
O2 requirement up trended to 6 L. Tachypneic. Wean O2 as tolerated
Supportive care with IS and mucinex.
Trial of IV steroids andnebulizers
Check CT chest without contrast
Will ask pulmonary for input
# Acute decompensated CHF
Echo reviewed 01/2025, mod MS/mild MR, Mild , no RWMA
Pro�BNP 3800
CT chest to assess for further pulmonary edema if present
Hold further diuretics.
# Anemia
Normocytic, could be secondary to sepsis and noted to be iron deficient
Start IV iron
# Hyponatremia
Mild, asymptomatic continue to monitor
hold lasix
monitor
# DM 2 with hyperglycemia
Continue home Lantus 13 units.
Hold metformin and other orals
Sliding scale insulin
#HTN
BP controlled, continue home meds
Patient is DNR
DVT PPx�Lovenox
Anticipated Discharge: > 48 hours
Subjective/Interval History
-
Date of Service: February 19, 2025
Overnight events noted
Patient with increasing oxygenation of requirement
Patient said breathing has mildly improved
Said nebulizer helped with the breathing
Objective Data
-
Labs:
Laboratory Results
02/19/25
06:49
WBC 17.9 H
Hgb 9.2 L
Hct 27.4 L
Plt Count 451 H
Sodium 129 L
Potassium 3.5
Chloride 94 L
Carbon Dioxide 24
BUN 13
Creatinine 0.6
Glucose 223 H
Calcium 7.4 L
Total Bilirubin 1.1
AST 39 H
ALT 27
Alkaline Phosphatase 78
Vital Signs:
Vital Signs
Temp Pulse Resp BP Pulse Ox
99.6 F 86 18 103/57 97
02/19/25 07:10 02/19/25 07:47 02/19/25 07:47 02/19/25 07:10 02/19/25 08:50
I&O
02/18/25 02/19/25 02/20/25
06:59 06:59 06:59
Intake Total 1100 / 1100
Balance 1100 / 1100
Physical Exam
-
General: No Apparent Distress
HEENT: Moist Mucous Membranes, Anicteric, PERRLA and Oxygen
Respiratory: Wheezes, Rhonchi, Other (Tachypneic) and Chest Tubes; Negative Accessory Resp Muscle Use
Cardiac: Regular Rhythm and S1/S2; Negative Murmur, Rub or Gallop
GI: Soft, Nontender, Nondistended and Normal Bowel Sounds
Musculoskeletal: No Edema
Skin: Warm and Dry; Negative Rash, Ulcers or Lesions
Neuro: Awake, AO x 3 and Nonfocal/Grossly Intact
Psych: Calm
Data Reviewed
-
Total Time Spent with Patient (in minutes): 55
[2025-02-19 11:25] LABS: Glucose - Point of Care 481 mg/dl (70-99)
[2025-02-19] MEDS: DUONEB 3 ML INH ×2 (11:28→19:31)
[2025-02-19 12:16] LABS: Glucose 429 mg/dl (70-99)
[2025-02-19] MEDS: NOVOLOG FLEXPEN-LOW RESISTANCE 6 UNITS SC (12:20)
[2025-02-19] MEDS: ROCEPHIN 1000 MG IV (13:39)
[2025-02-19] MEDS: STERILE WATER FOR INJECTION 10 ML IV (13:39)
[2025-02-19] MEDS: FERRLECIT 110 MG IV (13:40)
[2025-02-19] MEDS: DUONEB INH (14:18)
[2025-02-19 14:28] LABS: Glucose - Point of Care 505 mg/dl (70-99)
[2025-02-19 15:10] VITALS: BP 107/52
[2025-02-19 15:21] LABS: Glucose 445 mg/dl (70-99)
[2025-02-19] MEDS: NOVOLOG FLEXPEN 12 UNITS SC ×2 (15:43→20:33)
[2025-02-19 16:22] LABS: Glucose - Point of Care 533 mg/dl (70-99)
--- NOTE | 2025-02-19 16:59 | CON.PUL ---
Consultation
Consultation Request
Date/Time Consultation Requested: 02/19/2025
Date/Time Consultation Performed: 02/19/2025
Medical History
-
Chief Complaint: Cough, chills, dyspnea
History of Present Illness:
Patient is a very pleasant female with history of diabetes, hypertension, hyperlipidemia presented with worsening shortness of breath. Patient reported feeling poorly for about a week now, reported chills at home along with clear to yellowish
expectoration and subjective fever. She was evaluated in the emergency room where she was noted to have bilateral lower lobe infiltrates. She was suggested to have bilateral pneumonia along with possibly heart failure exacerbation. She was
admitted to the hospital was started on diuretics as well as antibiotics. Pulmonary consultation today was requested for further input. Patient was seen in pulmonary clinic earlier this year for chronic cough and had a CT scan performed which was
concerning for possible interstitial lung disease, NSIP pattern. Patient also had pulmonary function testing performed which was suggestive of moderate to severe restrictive lung function and she was not able to perform DLCO assessment however.
Past Medical History
Past Medical History: Reports Other
Additional Past Medical History:
DM2
Retinopathy
HTN
HLD
Lumbar spinal stenosis
Anxiety
Allergic rhinitis
Past Surgical History: Reports Other
Additional Past Surgical History:
Vaginal hysterectomy and BSO
Appendectomy
Cholecystectomy
Right ankle fusion and screws
Mohs surgery to ankle
Social History
Tobacco: Other (Significant secondhand smoke exposure from her father)
Alcohol: None
Drug: None
Living: Alone
Employment: Retired (Worked at [employer])
Family History
Family History: Other (Father emphysema, mother of cancer in her 60s)
Allergies / Home Medications
Allergies reflects when Allergies were last updated in [facility].
Allergies / Home Medications
Allergies
Allergy/AdvReac Type Severity Reaction Status Date / Time
Cephalosporins Allergy Hives Verified 02/17/25 07:55
lisinopril Allergy COUGH Verified 02/17/25 07:55
penicillin G Allergy Hives Verified 02/17/25 07:55
Penicillins Allergy Hives Verified 02/17/25 07:55
zinc Allergy Unknown Verified 02/17/25 15:46
Home Medications
�Medication �Instructions �Recorded �Confirmed �Last Taken �Type
repaglinide 2 mg tablet 3 mg PO MEALS Diabetes 09/16/20 02/17/25 02/16/25 History
atorvastatin 20 mg tablet 20 mg PO QPM High cholesterol #30 09/21/20 02/17/25 02/16/25 Rx
tabs
carvedilol 3.125 mg tablet 3.125 mg PO BID Heart Failure #30 09/21/20 02/17/25 02/16/25 Rx
tabs
losartan 25 mg tablet 25 mg PO HS Heart Failure #30 tabs 09/21/20 02/17/25 02/16/25 Rx
metformin 1,000 mg tablet 1,000 mg PO BID Diabetes ##0 10/11/20 02/17/25 02/16/25 Rx
albuterol sulfate 90 mcg/actuation 2 puff inhalation R Q6HPRN PRN sob 02/17/25 02/17/25 Unknown History
aerosol inhaler
fluoxetine 40 mg capsule 40 mg PO DAILY 02/17/25 02/17/25 02/16/25 History
fluticasone furoate 200 1 inh inhalation R DAILY 02/17/25 02/17/25 02/16/25 History
mcg-vilanterol 25 mcg/dose
inhalation powder (Breo Ellipta)
insulin glargine 100 unit/mL (3 13 unit SC DAILY 02/17/25 02/17/25 02/16/25 History
mL) subcutaneous pen (Lantus
Solostar U-100 Insulin)
Review of Systems
-
Hematologic/Lymphatic: Other (All 14 systems reviewed and negative except as stated above in the history of present illness.)
Vitals / Labs / Diagnostic Testing
Vital Signs
Temp Pulse Resp BP Pulse Ox
98.2 F 83 16 107/52 92
02/19/25 15:10 02/19/25 15:10 02/19/25 15:10 02/19/25 15:10 02/19/25 15:10
Lab Data
02/19/25 06:49
Microbiology
02/17/25 12:20 Blood/Venous Blood Culture - Preliminary
No Growth in 48 hours- Final report to follow
02/17/25 12:20 Blood/Venous Blood Culture - Preliminary
No Growth in 48 hours- Final report to follow
02/17/25 08:25 Nasal Swab Influenza Types A & B (NITZA) - Final
Negative for Influenza A & B, NAAT
Negative results must be combined with clinical observations
and patient history.
Nucleic Acid Amplification test (NAAT)performed on the
[employer] platform.
Diagnostic Testing:
Physical Exam
-
HEENT: Normocephalic
Cardiovascular: S1/S2
Respiratory: Rhonchi (Bilaterally mostly in the lower lobes)
GI: Soft and Non Distended
Neurology: Awake and Alert
Skin: Warm
General: Comfortable
Assessment
-
#1. Acute hypoxic respiratory failure with bilateral Pneumonia
-Suspect related to bilateral lower lobe pneumonia
-Continue antibiotics, currently on ceftriaxone and azithromycin, follow-up on blood cultures
-Check MRSA screen, Legionella and strep pneumo antigen. Will order sputum culture if patient is able to produce any
-Agree with CT chest for further evaluation
-Continue supplemental O2, keep saturations above 90%
-Prednisone 30 mg daily for 5 days considering the severity of pneumonia and respiratory failure
#2. Suspected underlying interstitial lung disease (ILD)
-Patient has chronic cough for which she was evaluated at [facility] pulmonary clinic.
-PFT 10/22/2024:� Moderate-borderline severe restrictive lung defect.� No evidence of an obstructive lung defect.� Patient unable to perform DLco maneuver, per spa technician.� Data: FEV1/FVC: 82 / 114% predicted, FEV1: 1.3L / 87%, FVC: 1.58L / 78%, TLC:
57%, VC: 79%, ERV: 206%, RV: 47%.
- Moderate to severe restrictive pattern noted on pulmonary function test, without evidence of obstruction. No reported history of smoking
- CT chest from earlier this year suggestive of interstitial pneumonitis, ?NSIP pattern
- Currently patient had fever, elevated white count and multifocal infiltrate, more suggestive of acute pneumonia however underlying ILD progression cannot be ruled out. Await CT chest for further evaluation
- Patient has been on Breo at home along with as needed albuterol
#3. Pulmonary HTN
- PASP 45 mm on ECHO with normal RV size and function
- ? Group II with Moderate Mitral stenosis. Needs cardiology evalution.
Other medical diagnoses:
- Anemia
- Mild hyponatremia
- DM-II, hyperglycemia worse with IV steroids. Management per primary team, consider insulin infusion, steroids switched to PO Prednisone at 30 mg daily
- HTN
- Suspect Acute on chronic HFpEF, LVEF 60-65%, Moderate Mitral stenosis and mild MR with mild . s/p IV Lasix. Currently appears euvolemic. BNP elevated. Await CT, might need RHC if hypoxia and pulmonary infiltrates persist. Consider cardiology
evaluation.
Total time spent on this consultation/encounter _56___ minutes which includes review of history, physical exam, medications, laboratory data, personal review of imaging, extensive review of outpatient records, discussion with care team and
respiratory therapy.
Data:
CXR 02/2025: There is new airspace disease involving the majority of the left lower and patchy airspace disease in the right lower lobe. Findings are consistent with a diffuse pneumonia
CT Head 02/2025: There are mild changes of cortical atrophy and chronic ischemic disease, stable from prior study
CT Chest 10/2024: 1. MODERATE INFLAMMATORY INTERSTITIAL PNEUMONITIS in the lungs which has increased since 11/15/2021 (possibly nonspecific interstitial pneumonitis (NSIP) or drug reaction given the absence of honeycombing).
2. Mild to moderate elevation of the right hemidiaphragm.
3. Small calcified pulmonary granulomas in the left lower lobe.
4. Mild mediastinal lymphadenopathy.
5. Severe calcification in the mitral annulus.
ECHO 01/2025: Normal left ventricular size, wall thickness and systolic function. No regional
wall motion abnormalities are seen. LV ejection fraction is 60-65%.
Moderate mitral stenosis with mean gradient of 7 mmHg and mild mitral
regurgitation.
Mild aortic stenosis with peak/mean gradients of 29/19 mmHg respectively,
aortic valve area 1.1 cm2.
Compared to previous echo from September 2023, mitral valve mean gradient was 5
mmHg at that time, no other significant change.
[facility] 10/2020: 1. Nonobstructive coronary disease
2. Preserved left ventricular systolic function
[2025-02-19] MEDS: ZITHROMAX INFUSION 250 IV (17:12)
[2025-02-19] MEDS: LIPITOR 20 MG PO (17:12)
[2025-02-19] MEDS: LOVENOX 40 MG SC (17:12)
[2025-02-19 17:22] VITALS: BP 115/57
[2025-02-19 17:52] LABS: Glucose 548 mg/dl (70-99)
[2025-02-19] MEDS: NOVOLOG FLEXPEN 15 UNITS SC (18:04)
[2025-02-19] MEDS: NOVOLOG FLEXPEN-HIGH RESISTANCE SC (18:06)
[2025-02-19 20:04] LABS: Glucose - Point of Care 393 mg/dl (70-99)
[2025-02-19] MEDS: MORPHINE SULFATE 0.5 MG IV (21:06)
--- NOTE | 2025-02-19 21:11 | PTCARENOTE ---
Pt with decreased pulse ox-84% on 6L. pt had just had neb treatment. Placed on midflow. Titrated up to 12 L and sat 92%. House ORTHOPTIST at bedside. Placed on tele. Pt orthopneic. Attempted to lay flat to see if she would be able to tolerate CT scan
tonight but sat began falling as soon as HOB lowered even slightly. Morphine 0.5mg given as ordered. Will continue to monitor closely.
[2025-02-19] MEDS: COZAAR 25 MG PO (22:17)
[2025-02-19 22:33] LABS: Glucose - Point of Care 166 mg/dl (70-99)
[2025-02-19 23:11] VITALS: BP 119/57
[2025-02-20] VITALS (9 sets, daily range): BP systolic 110–156; BP diastolic 54–75; BMI 19.5; BMI 19.8
--- NOTE | 2025-02-20 06:24 | PTCARENOTE ---
Pt continues to desaturate with any movement or talking. When OOB to BSC sats drop into low 70s and take up to 30 minutes to recover to 90s. When pt sleeping sats high 90s on 12L midflow.
[2025-02-20] MEDS: DUONEB 3 ML INH ×4 (07:27→19:25)
[2025-02-20 08:14] LABS: Hematocrit 24.9 % (37.0-47.0); Hemoglobin 8.8 g/dL (12.0-16.0); Mean Corp Hgb Conc. 35.3 g/dL (33.0-37.0); Mean Corpuscular Volume 90.2 fL (81.0-99.0); Nucleated Red Blood Cells % 0 %; Platelet Count 556 10^3/uL (130-400); Red Cell Dist. Width 12.4 % (11.5-14.5)
[2025-02-20 08:22] LABS: Glucose - Point of Care 255 mg/dl (70-99)
[2025-02-20 08:25] LABS: Blood Urea Nitrogen 20 mg/dl (7-17); Calcium 8.1 mg/dl (8.4-10.2); Carbon Dioxide 25 mmol/L (22-30); Chloride 97 mmol/L (98-107); Estimated Creatinine Clearance 53 ml/min; Glucose 247 mg/dl (70-99); Potassium 3.5 mmol/L (3.5-5.1); Sodium 131 mmol/L (135-145); eGFR > 60.00
[2025-02-20] MEDS: MUCINEX 600 MG PO ×2 (08:42→20:45)
[2025-02-20] MEDS: DELTASONE 30 MG PO (08:43)
[2025-02-20] MEDS: COREG 3.125 MG PO ×2 (08:43→20:45)
[2025-02-20] MEDS: PROZAC 40 MG PO (08:43)
--- NOTE | 2025-02-20 08:46 | PTCARENOTE ---
pt resting in bed on 12l o2. o2 sat 82%. placed on 15l and nrm. resp therapist up to give pt scheduled treatment. Dr Muse and Dr Friedman updated on pt condition. cxray ordered and transfer to imu. report given to imu nurse and pt transferred,.
--- NOTE | 2025-02-20 08:51 | W.PN.HOSP.TC ---
Today's Communication/Plan
-
Continue with broad-spectrum antibiotic azithromycin. Cefepime added
Continue with steroid
Continue with nebulizer
CT chest pending
Wean O2 as tolerated. Currently comfortable on high flow nasal cannula
Assessment / Plan
Assessment / Plan
89-year-old female with DM 2, CHF, HTN, HLD, asthma/COPD who presents with difficulty breathing, found to have pneumonia.
PLAN:
#Sepsis secondary to pneumonia-poa
#Acute hypoxic respiratory failure likely multifactorial
#History of secondhand smoking exposure/chronic bronchitis
# Suspected interstitial lung disease ?flare up
CXR on admission shows pneumonia, patient with leukocytosis and tachycardia
Blood cultures x 2 NGTD. Flu negative. COVID negative., Strep and Legionella antigen negative. MRSA screen pending.
Continue with azithromycin. Antibiotic escalated to cefepime.
lactate WNL
Oxygen requirement significantly trended up. Went from 6 L to 12 L to 15 L with nonrebreather last 24h. Patient is now transition to high flow nasal cannula 60% FIO2.
Continue with steroids per pulmonary. Currently on prednisone.
Continue with nebulizer.
Supportive care with IS and mucinex.
Repeat chest x-ray this morning with worsening of pneumonia on the right side
Check CT chest-still pending.
Insetting of worsening pneumonia right-sided and increased oxygenation will ask speech therapy evaluation
# Acute decompensated CHF likely secondary to valvular disease
Echo reviewed 01/2025, mod MS/mild MR, Mild , no RWMA
Pro�BNP 3800
CT chest to assess for further pulmonary edema if present
Hold further diuretics.
May need to consider cardiology input
# Anemia
Normocytic, could be secondary to sepsis and noted to be iron deficient
Start IV iron
# Hyponatremia
Mild, asymptomatic continue to monitor
hold lasix
monitor
# DM 2 with hyperglycemia
Worsened due to steroids
Lantus increased to 20 units
Continue with high insulin sliding scale regimen
Holding metformin
#HTN
BP controlled, continue home meds
Patient is DNR
DVT PPx�Lovenox
Offered to patient if she wanted me to update family which she kindly stated to hold of as she mentioned, she has been updating them.
Anticipated Discharge: > 48 hours
Subjective/Interval History
-
Date of Service: February 20, 2025
seen on HFNC
States breathing improved slightly
Sats improved on HFNC
Overnight with increasing in oxygen requirement noted
Objective Data
-
Labs:
Laboratory Results
02/20/25
07:20
WBC 19.4 H
Hgb 8.8 L
Hct 24.9 L
Plt Count 556 H D
Sodium 131 L
Potassium 3.5
Chloride 97 L
Carbon Dioxide 25
BUN 20 H
Creatinine 0.6
Glucose 247 H
Calcium 8.1 L
Vital Signs:
Vital Signs
Temp Pulse Resp BP Pulse Ox
97.7 F 81 20 120/60 99
02/20/25 03:42 02/20/25 08:43 02/20/25 07:30 02/20/25 08:43 02/20/25 07:30
I&O
02/19/25 02/20/25 02/21/25
06:59 06:59 06:59
Intake Total 830 / 830
Output Total 400 / 400
Balance 830 / 830 -400 / -400
Physical Exam
-
General: No Apparent Distress
HEENT: Moist Mucous Membranes, Anicteric, PERRLA and Oxygen (HFNC )
Respiratory: Rhonchi; Negative Accessory Resp Muscle Use
Cardiac: Regular Rhythm, S1/S2 and Murmur; Negative Rub or Gallop
GI: Soft, Nontender, Nondistended and Normal Bowel Sounds
Musculoskeletal: No Edema
Skin: Warm and Dry; Negative Rash, Ulcers or Lesions
Neuro: Awake, Alert, Oriented, AO x 3, No Motor Deficits and Nonfocal/Grossly Intact
Psych: Calm
Data Reviewed
-
Total Time Spent with Patient (in minutes): 58
[2025-02-20] MEDS: NOVOLOG FLEXPEN-HIGH RESISTANCE 7 UNITS SC ×2 (10:06→13:24)
[2025-02-20] MEDS: LANTUS 0.2 UNITS SC (10:06)
--- NOTE | 2025-02-20 11:39 | W.PN.PUL3 ---
Today's Communication / Plan
-
- Transferred to IMU, start high flow nasal cannula
- Stat chest x-ray, followed by CT chest
- Discontinue ceftriaxone, initiate cefepime, continue azithromycin, await nasal MRSA screen
- Start pulse dose steroid to 50 mg methylprednisolone IV daily for 3 days
- Titrate FiO2 as needed to keep saturation above 90%
- Follow-up chest x-ray in a.m.
Assessment
-
Patient is a very pleasant female with history of diabetes, hypertension, hyperlipidemia presented with worsening shortness of breath. Patient reported feeling poorly for about a week now, reported chills at home along with clear to yellowish
expectoration and subjective fever. She was evaluated in the emergency room where she was noted to have bilateral lower lobe infiltrates. She was suggested to have bilateral pneumonia along with possibly heart failure exacerbation. She was
admitted to the hospital was started on diuretics as well as antibiotics. Pulmonary consultation today was requested for further input. Patient was seen in pulmonary clinic earlier this year for chronic cough and had a CT scan performed which was
concerning for possible interstitial lung disease, NSIP pattern. Patient also had pulmonary function testing performed which was suggestive of moderate to severe restrictive lung function and she was not able to perform DLCO assessment however.
#1. Acute hypoxic respiratory failure with bilateral Pneumonia vs ILD flare
-02/20, increasing dyspnea, increasing oxygen requirement. Patient transition to high flow nasal cannula, transferred to IMU. Stat chest x-ray suggestive of worsening infiltrates
-CT chest stat, final read pending, imaging suggestive of mosaic pattern and worsening interstitial infiltrates concerning for underlying ILD exacerbation,?NSIP/AIP
- Patient has been on ceftriaxone and azithromycin. Discontinue ceftriaxone and start cefepime. Await MRSA screen
- Negative Legionella and strep pneumo antigen
- Start pulse dose steroid, methylprednisolone to 50 mg IV daily for 3 days, then will start 1 mg/kg prednisone daily
- Titrate FiO2, keep saturations above 90%
#2. Suspected underlying interstitial lung disease (ILD) with acute worsening
-Patient has chronic cough for which she was evaluated at [facility] pulmonary clinic.
-PFT 10/22/2024:� Moderate-borderline severe restrictive lung defect.� No evidence of an obstructive lung defect.� Patient unable to perform DLco maneuver, per rail technician.� Data: FEV1/FVC: 82 / 114% predicted, FEV1: 1.3L / 87%, FVC: 1.58L / 78%, TLC:
57%, VC: 79%, ERV: 206%, RV: 47%.
- Moderate to severe restrictive pattern noted on pulmonary function test, without evidence of obstruction. No reported history of smoking
- CT chest from earlier this year suggestive of interstitial pneumonitis, ?NSIP pattern
- CT chest, 02/2025, significantly worsened interstitial opacities with mosaic pattern concerning for ILD flare.
-Pulse dose steroids started. In view of fever and elevated white count, concomitant infection cannot be ruled out, continue broad-spectrum antibiotics. Patient unlikely to tolerate bronchoscopy and BAL and at risk of needing mechanical
ventilation, hold off for now.
- Patient has been on Breo at home along with as needed albuterol. No obstructive airway disease noted on pulmonary function testing.
#3. Pulmonary HTN
- PASP 45 mm on ECHO with normal RV size and function
- ? Group II with Moderate Mitral stenosis. Needs cardiology evaluation.
#4. Moderate Mitral stenosis. Pulmonary edema also in differential diagnosis. Patient appears euvolemic on exam and mosaic pattern noted on CT more suggestive of ILD rather than Pulmonary edema. if patient continues to decline, might need to
consider RHC.
Other medical diagnoses:
- Anemia
- Mild hyponatremia
- DM-II, hyperglycemia worse with IV steroids. Management per primary team, consider insulin infusion, steroids switched to PO Prednisone at 30 mg daily
- HTN
Total time spent on this consultation/encounter _62__ minutes which includes review of history, physical exam, medications, laboratory data, personal review of imaging, extensive review of outpatient records, discussion with care team and
respiratory therapy.
Patient reevaluated after high flow nasal cannula, with improving work of breathing. Continue to monitor in IMU
Data:
CXR 02/2025: There is new airspace disease involving the majority of the left lower and patchy airspace disease in the right lower lobe. Findings are consistent with a diffuse pneumonia
CT Head 02/2025: There are mild changes of cortical atrophy and chronic ischemic disease, stable from prior study
CT Chest 10/2024: 1. MODERATE INFLAMMATORY INTERSTITIAL PNEUMONITIS in the lungs which has increased since 11/15/2021 (possibly nonspecific interstitial pneumonitis (NSIP) or drug reaction given the absence of honeycombing).
2. Mild to moderate elevation of the right hemidiaphragm.
3. Small calcified pulmonary granulomas in the left lower lobe.
4. Mild mediastinal lymphadenopathy.
5. Severe calcification in the mitral annulus.
ECHO 01/2025: Normal left ventricular size, wall thickness and systolic function. No regional
wall motion abnormalities are seen. LV ejection fraction is 60-65%.
Moderate mitral stenosis with mean gradient of 7 mmHg and mild mitral
regurgitation.
Mild aortic stenosis with peak/mean gradients of 29/19 mmHg respectively,
aortic valve area 1.1 cm2.
Compared to previous echo from September 2023, mitral valve mean gradient was 5
mmHg at that time, no other significant change.
[facility] 10/2020: 1. Nonobstructive coronary disease
2. Preserved left ventricular systolic function
Subjective Data
-
Date of Service:
Date of Service: February 20, 2025
Subjective:
Patient more shortness of breath overnight, increasing oxygen requirement, urgently evaluated, transferred to IMU unit.
Review of Systems
Genitourinary: Other (Increased dyspnea, unchanged cough.)
Objective Data
Data Reviewed
Vital Signs / I&O / Oxygen:
Vital Signs
Temp Pulse Resp BP Pulse Ox
97.7 F 81 26 156/73 97
02/20/25 03:42 02/20/25 11:10 02/20/25 11:10 02/20/25 10:00 02/20/25 11:11
Intake and Output
08/16/25 08/17/25 08/18/25
06:59 06:59 06:59
Intake Total 830 / 830
Output Total 400 / 400
Balance 830 / 830 -400 / -400
SaO2 97
Nasal Cannula flow liters per 40
minute
Physical Exam
General: Respiratory Distress (Developing mild respiratory distress, improved after switching to high flow nasal cannula)
HEENT: Normocephalic
Cardiovascular: S1-S2
Respiratory: Clear and Rhonchi
GI: Soft and Non Distended
Neurology: Awake and Alert
Skin: Warm
Labs/Micro/Reports
Lab Data
02/20/25 07:20
02/20/25 07:20
Microbiology
02/19/25 18:25 Urine Legionella Urinary Antigen - Final
Negative for Legionella pneumophila Serogroup 1 antigen.
A negative result does not rule out the possiblity of
Legionella infection due to other serogroups or species of
Legionella. Clinical correlation is recommended.
02/19/25 18:25 Urine Streptococcus pneumoniae Antigen (M - Final
Negative for Streptococcus pneumoniae antigen.
A negative result does not exclude infection with
Streptococcus pneumoniae. Clinical correlation is
recommended.
02/17/25 12:20 Blood/Venous Blood Culture - Preliminary
No Growth in 48 hours- Final report to follow
02/17/25 12:20 Blood/Venous Blood Culture - Preliminary
No Growth in 48 hours- Final report to follow
02/17/25 08:25 Nasal Swab Influenza Types A & B (NITZA) - Final
Negative for Influenza A & B, NAAT
Negative results must be combined with clinical observations
and patient history.
Nucleic Acid Amplification test (NAAT)performed on the
[employer] platform.
[2025-02-20] MEDS: STERILE WATER FOR INJECTION 10 ML IV ×3 (12:07→23:47)
[2025-02-20] MEDS: SOLU-MEDROL PF 250 MG IV (12:08)
[2025-02-20] MEDS: MAXIPIME 1000 MG IV ×3 (12:08→23:47)
[2025-02-20 12:31] LABS: Glucose - Point of Care 288 mg/dl (70-99)
--- NOTE | 2025-02-20 12:58 | PTOTSP ---
Speech therapy
Presentation: Patient was oriented and cooperative. Patient's speech and language appeared to be WNL during conversation. Patient denied any communicative deficits.
Complaints: Patient experienced some coughing with medications this AM as patient was taking several sips to propel the medications posterior. Patient tolerated her meal tray this AM (reg/thin).
Swallowing Function: Patient was seen positioned upright in bed on 15L O2 high flow. Patient was observed with several small, single sips of thin (straw) and bites of regular consistency solids in which patient appeared to tolerate as she did not
exhibit any overt clinical s/sx of aspiration or difficulty with mastication/ manipulation. Patient did, of note, demonstrate harsh reflexive coughing episode when patient took several large sips of thin liquids (straw). When reminded to take small,
single bites and sips, patient demonstrated an understanding and no additional s/sx of aspiration were observed.
Education: Given patient's high O2 supplementation currently, SENIOR TECHNICAL SUPPORT ANALYST stressed the importance of small, single bites and sips and to take breaks during meals to ensure tolerance. SENIOR TECHNICAL SUPPORT ANALYST also stressed the importance of stopping PO when she feels SOB or if
her SpO2<90%/ RR>30. Patient verbalized an understanding.
It appears the isolated incident was likely related to her taking several, large sips of thin liquid. However, patient is high risk for aspiration given her O2 requirement, CXR, and elevated WBC. Given the above, continue current diet with
supervision with PO to ensure adherence and tolerance.
Recommendations:
1) Reg/ thin
2) Aspiration precautions
3) PO only when RR<30 and SpO2 >90%
4) Supervision with PO to ensure adherence and tolerance
5) Medications whole in puree
Plan: SENIOR TECHNICAL SUPPORT ANALYST will continue to follow; pending hospitalization.
--- NOTE | 2025-02-20 13:33 | PTCARENOTE ---
Pt has wound on left ankle from skin biopsy. Daughter states that Derm wants it cleaned with water and aquaphor applied daily. RN provided wound care and consulted WOC RN. Pt on high flow with NRB needed for rescue when OOB to BSC or chair. all
other vital signs stable.
[2025-02-20 13:53] LABS: COVID-19 Antigen Negative (Negative)
[2025-02-20] MEDS: FERRLECIT 110 MG IV (14:06)
[2025-02-20] MEDS: ZITHROMAX INFUSION 250 IV (15:21)
--- NOTE | 2025-02-20 16:10 | PTCARENOTE ---
Pt continues with tenuous respiratory status. O2 sat drops with any exertion. NRB mask PRN for recovery
--- NOTE | 2025-02-20 17:10 | PTCARENOTE ---
Pt O2 sat dropping while using BSC so bedpan attempted. Pt O2 sat dropped using bedpan as well. Pt placed on external urinary device. O2 sat dropped as low as 77%. NRB used for rescue.
[2025-02-20 17:59] LABS: Glucose - Point of Care 370 mg/dl (70-99)
[2025-02-20] MEDS: NOVOLOG FLEXPEN 10 UNITS SC (18:02)
[2025-02-20] MEDS: NOVOLOG FLEXPEN-HIGH RESISTANCE 12 UNITS SC (18:02)
[2025-02-20] MEDS: LIPITOR 20 MG PO (18:03)
[2025-02-20] MEDS: LOVENOX 40 MG SC (18:03)
[2025-02-20] MEDS: TYLENOL 650 MG PO (18:08)
[2025-02-20] MEDS: COZAAR 25 MG PO (20:45)
--- NOTE | 2025-02-20 23:38 | PTCARENOTE ---
Received pt at change of shift. Pt used BSC in attempt to have a BM. HFNC in place with NRB to maintain pulse ox while exerting herself. Pt appears anxious. Able to take meds with water and applesauce. Pt resting in bed with call connelly in reach.
Bed alarm active.
[2025-02-21] VITALS (13 sets, daily range): BP systolic 101–159; BP diastolic 52–78; BMI 20.1
[2025-02-21] MEDS: TYLENOL 650 MG PO (00:45)
--- NOTE | 2025-02-21 01:09 | PTCARENOTE ---
Pt desats to 60s when using BSC. NRB for recovery. RT at bedside to assess HFNC O2 levels. Currently at 75% and 40L. Pulse ox now 100% resting in bed.
[2025-02-21 04:46] LABS: Glucose - Point of Care 146 mg/dl (70-99)
[2025-02-21] MEDS: STERILE WATER FOR INJECTION 10 ML IV ×3 (05:07→18:25)
[2025-02-21] MEDS: MAXIPIME 1000 MG IV ×4 (05:07→23:26)
[2025-02-21 06:11] LABS: Blood Urea Nitrogen 17 mg/dl (7-17); Calcium 8.4 mg/dl (8.4-10.2); Carbon Dioxide 29 mmol/L (22-30); Chloride 103 mmol/L (98-107); Estimated Creatinine Clearance 55 ml/min; Glucose 141 mg/dl (70-99); Potassium 4.1 mmol/L (3.5-5.1); Sodium 137 mmol/L (135-145); eGFR > 60.00
[2025-02-21 06:13] LABS: Hematocrit 28.4 % (37.0-47.0); Hemoglobin 9.5 g/dL (12.0-16.0); Mean Corp Hgb Conc. 33.5 g/dL (33.0-37.0); Mean Corpuscular Volume 92.5 fL (81.0-99.0); Nucleated Red Blood Cells % 0 %; Platelet Count 679 10^3/uL (130-400); Red Cell Dist. Width 12.9 % (11.5-14.5)
[2025-02-21] MEDS: NOVOLOG FLEXPEN 10 UNITS SC ×3 (07:54→17:46)
[2025-02-21] MEDS: NOVOLOG FLEXPEN-HIGH RESISTANCE 2 UNITS SC (07:55)
[2025-02-21 08:05] LABS: Glucose - Point of Care 181 mg/dl (70-99)
[2025-02-21] MEDS: DUONEB 3 ML INH ×5 (08:11→19:21)
[2025-02-21] MEDS: MUCINEX 600 MG PO ×2 (09:17→19:47)
[2025-02-21] MEDS: SOLU-MEDROL PF 250 MG IV (09:17)
[2025-02-21] MEDS: COREG 3.125 MG PO ×2 (09:17→19:47)
[2025-02-21] MEDS: PROZAC 40 MG PO (09:17)
[2025-02-21] MEDS: LANTUS 0.2 UNITS SC (09:18)
--- NOTE | 2025-02-21 09:56 | CM ---
chart reviewed
CXR
on high flow oxygen
ST eval reg/thin, aspiration precautions
will need PT/OT orders when appropriate
PLAN: TBD, follow hospital progress, CM to follow for needs
--- NOTE | 2025-02-21 10:07 | PTCARENOTE ---
Rec'd pt this AM. Increased shortness of breath and work of breathing. Respiratory distress with desaturation with exertion. Updated Dr. Lipscomb at bedside. Pt also complained of increased anxiety and is tachypnic. Updated Dr. Rowell via TT. See MAR
--- NOTE | 2025-02-21 10:23 | W.PN.PUL.V3 ---
Today's Communication / Plan
-
Supplemental oxygen
Cefepime
Methylprednisolone 250 mg IV daily
Monitor for fluid overload
Comfort a priority
Anxiolytics per primary service
Assessment
-
Patient is a very pleasant female with history of diabetes, hypertension, hyperlipidemia presented with worsening shortness of breath. Patient reported feeling poorly for about a week now, reported chills at home along with clear to yellowish
expectoration and subjective fever. She was evaluated in the emergency room where she was noted to have bilateral lower lobe infiltrates. She was suggested to have bilateral pneumonia along with possibly heart failure exacerbation. She was
admitted to the hospital was started on diuretics as well as antibiotics. Pulmonary consultation today was requested for further input. Patient was seen in pulmonary clinic earlier this year for chronic cough and had a CT scan performed which was
concerning for possible interstitial lung disease, NSIP pattern. Patient also had pulmonary function testing performed which was suggestive of moderate to severe restrictive lung function and she was not able to perform DLCO assessment however.
#1. Acute hypoxic respiratory failure with bilateral Pneumonia vs ILD flare
-02/20, increasing dyspnea, increasing oxygen requirement. Patient transition to high flow nasal cannula, transferred to IMU. Stat chest x-ray suggestive of worsening infiltrates
-CT chest 02/20/2025-imaging suggestive of mosaic pattern and worsening interstitial infiltrates concerning for underlying ILD exacerbation, ?NSIP/AIP
Chest x-ray 02/21/2025-bilateral opacifications increased from most recent radiographs likely representing increased inflammation
- Patient has been on ceftriaxone and azithromycin. Discontinued ceftriaxone and start cefepime. MRSA screen negative
- Negative Legionella and strep pneumo antigen
Leukocytosis persists-may have component of steroid effect
- Started pulse dose steroid, initially methylprednisolone 250 mg IV daily for 3 days- then will start 1 mg/kg prednisone daily
- Titrate FiO2, keep saturations above 90%-remains on high flow
#2. Suspected underlying interstitial lung disease (ILD) with acute worsening
-Patient has chronic cough for which she was evaluated at [facility] pulmonary clinic.
-PFT 10/22/2024:� Moderate-borderline severe restrictive lung defect.� No evidence of an obstructive lung defect.� Patient unable to perform DLco maneuver, per garage door technician.� Data: FEV1/FVC: 82 / 114% predicted, FEV1: 1.3L / 87%, FVC: 1.58L / 78%, TLC:
57%, VC: 79%, ERV: 206%, RV: 47%.
- Moderate to severe restrictive pattern noted on pulmonary function test, without evidence of obstruction. No reported history of smoking
- CT chest from earlier this year suggestive of interstitial pneumonitis, ?NSIP pattern
- CT chest, 02/2025, significantly worsened interstitial opacities with mosaic pattern concerning for ILD flare.
-Pulse dose steroids started. In view of fever and elevated white count, concomitant infection cannot be ruled out, continue broad-spectrum antibiotics. Patient unlikely to tolerate bronchoscopy and BAL and at risk of needing mechanical
ventilation, hold off for now.
- Patient has been on Breo at home along with as needed albuterol. No obstructive airway disease noted on pulmonary function testing.
#3. Pulmonary HTN
- PASP 45 mm on ECHO with normal RV size and function
- ? Group II with Moderate Mitral stenosis. Needs cardiology evaluation.
#4. Moderate Mitral stenosis. Pulmonary edema also in differential diagnosis. Patient appears euvolemic on exam and mosaic pattern noted on CT more suggestive of ILD rather than Pulmonary edema. if patient continues to decline, might need to
consider RHC.
Other medical diagnoses:
- Anemia
- Mild hyponatremia
- DM-II, hyperglycemia worse with IV steroids. Management per primary team, consider insulin infusion, steroids switched to PO Prednisone at 30 mg daily
- HTN
Total time spent on this consultation/encounter _62__ minutes which includes review of history, physical exam, medications, laboratory data, personal review of imaging, extensive review of outpatient records, discussion with care team and
respiratory therapy.
Patient reevaluated after high flow nasal cannula, with improving work of breathing. Continue to monitor in IMU
Data:
CXR 02/2025: There is new airspace disease involving the majority of the left lower and patchy airspace disease in the right lower lobe. Findings are consistent with a diffuse pneumonia
CT Head 02/2025: There are mild changes of cortical atrophy and chronic ischemic disease, stable from prior study
CT Chest 10/2024: 1. MODERATE INFLAMMATORY INTERSTITIAL PNEUMONITIS in the lungs which has increased since 11/15/2021 (possibly nonspecific interstitial pneumonitis (NSIP) or drug reaction given the absence of honeycombing).
2. Mild to moderate elevation of the right hemidiaphragm.
3. Small calcified pulmonary granulomas in the left lower lobe.
4. Mild mediastinal lymphadenopathy.
5. Severe calcification in the mitral annulus.
ECHO 01/2025: Normal left ventricular size, wall thickness and systolic function. No regional
wall motion abnormalities are seen. LV ejection fraction is 60-65%.
Moderate mitral stenosis with mean gradient of 7 mmHg and mild mitral
regurgitation.
Mild aortic stenosis with peak/mean gradients of 29/19 mmHg respectively,
aortic valve area 1.1 cm2.
Compared to previous echo from September 2023, mitral valve mean gradient was 5
mmHg at that time, no other significant change.
[facility] 10/2020: 1. Nonobstructive coronary disease
2. Preserved left ventricular systolic function
Subjective Data
-
Date of Service:
Date of Service: February 21, 2025
Chief Complaint: Pulmonary Follow Up and Dyspnea Follow Up
Subjective:
Patient complaining of some anxiety, some shortness of breath with minimal exertion, some chest pressure but no chest pain, pleurisy, congestion or productive cough
Review of Systems
General: Other (Per HPI)
Objective Data
Data Reviewed
Vital Signs / I&O:
Vital Signs
Temp Pulse Resp BP Pulse Ox
97.9 F 101 22 152/78 94
02/21/25 00:59 02/21/25 09:17 02/21/25 08:14 02/21/25 09:17 02/21/25 08:14
Intake and Output
02/20/25 02/21/25 02/22/25
06:59 06:59 06:59
Intake Total 830 / 830 480 / 480
Output Total 800 / 800
Balance 830 / 830 -320 / -320
SaO2: 94
Nasal Cannula flow liters per minute: 55
Physical Exam
General: Respiratory Distress (Mild) and Comfortable (n)
HEENT: Normocephalic and Anicteric
Cardiovascular: Regular Rhythm and Murmur
Respiratory: Wheeze (n), Crackles (Rare left basilar), Rhonchi, Non-Labored Respirations, Accessory Resp Muscle Use (n) and Stridor (n)
GI: Soft, Non Distended and Non Tender
Neurology: Awake, Alert and No Motor Deficits
Skin: Warm, Good Color, Cyanosis (n) and Jaundice (n)
Labs/Micro/Reports
Lab Data
02/21/25 05:16
02/21/25 05:16
Microbiology
02/19/25 17:13 Nose MRSA Screen - Final
No Methicillin Resistant Staphylococcus aureus isolated.
02/17/25 12:20 Blood/Venous Blood Culture - Preliminary
No Growth in 72 hours- Final report to follow
02/17/25 12:20 Blood/Venous Blood Culture - Preliminary
No Growth in 72 hours- Final report to follow
02/19/25 18:25 Urine Legionella Urinary Antigen - Final
Negative for Legionella pneumophila Serogroup 1 antigen.
A negative result does not rule out the possiblity of
Legionella infection due to other serogroups or species of
Legionella. Clinical correlation is recommended.
02/19/25 18:25 Urine Streptococcus pneumoniae Antigen (M - Final
Negative for Streptococcus pneumoniae antigen.
A negative result does not exclude infection with
Streptococcus pneumoniae. Clinical correlation is
recommended.
[2025-02-21] MEDS: ATIVAN 0.5 MG PO ×2 (10:36→14:57)
--- NOTE | 2025-02-21 12:00 | CHAP ---
Fr. Saturnino Lambert of [facility] in [place] came in and anointed the patient and gave her Holy Communion. Exact time uncertain.
[2025-02-21] MEDS: NOVOLOG FLEXPEN-HIGH RESISTANCE 7 UNITS SC ×2 (12:50→17:46)
[2025-02-21 12:57] LABS: Glucose - Point of Care 253 mg/dl (70-99)
--- NOTE | 2025-02-21 14:35 | W.PN.HOSP.TC ---
Today's Communication/Plan
-
IV steroids
IV antibiotics
nebs/pulm toilet
HFNC
Assessment / Plan
Assessment / Plan
89F with DM 2, CHF, HTN, HLD, asthma/COPD who presents with difficulty breathing, found to have pneumonia. Has decompensated since admission, now requiring high flow nasal cannula and desaturating with minimal effort.
PLAN:
1. Sepsis secondary to pneumonia, suspect viral pneumonia
Non-specific interstitial pneumonitis
CXR on admission shows pneumonia, patient with leukocytosis and tachycardia. Still with leukocytosis.
Blood cultures x 2 NGTD. Flu negative. COVID negative., Strep and Legionella antigen negative. MRSA screen negative.
Continue with azithromycin, change to oral. Antibiotic escalated to cefepime, day 2/.
CT reviewed and discussed with Dr. Lipscomb, more closely resembles viral PNA, also in NSIP pattern, could be steroid responsive so will continue sterods (IV solu-medrol for 3 days).
2. Acute hypoxic respiratory failure
multifactorial, see #1, CXR also with concern for ARDS
at baseline has chronic bronchitis, due to h/o secondhand smoke
Oxygen requirement significantly trended up. Req 3L on admit, then went to 6 L to 12 L to 15 L with nonrebreather w/in 24h. Patient is now transition to high flow nasal cannula 55/ 90% FIO2.
pulmonary toilet
ativan prn anxiety
Continue with nebulizer.
Supportive care with IS and mucinex.
3. resolved - Acute decompensated CHF
likely secondary to valvular disease
Echo reviewed 01/2025, mod MS/mild MR, Mild , no RWMA
Pro�BNP 3800
CT chest does not show pleural effusion or pulm edema
Hold further diuretics.
pt c/o chest heaviness throughout admission, check echo and EKG
4. Anemia
Normocytic, could be secondary to sepsis and noted to be iron deficient
IV iron day 09/08
5. resolved - hyponatremia
Mild, asymptomatic continue to monitor
hold lasix
monitor
6. DM 2 with hyperglycemia
Worsened due to steroids
Lantus increased to 20 units
Continue with high insulin sliding scale regimen
Holding metformin
7. HTN
BP controlled, continue home meds losartan/coreg
Patient is DNR. If she is unable to be weaned from HFNC will need to discuss palliative care.
DVT PPx�Lovenox
Anticipated Discharge: > 48 hours
Subjective/Interval History
-
Date of Service: February 21, 2025
Patient feeling short of breath with small movements, notes wheezing and cough, and that it takes a long time to get back to rest. She also notes chest heaviness, that has been ongoing all admission. Daughters and son-in-law who are at bedside, we
discussed her CT results, lab results, and updated on plan of care. All questions answered as able.
Objective Data
-
Labs:
Laboratory Results
02/21/25
05:16
WBC 20.7 H
Hgb 9.5 L
Hct 28.4 L
Plt Count 679 H D
Sodium 137
Potassium 4.1
Chloride 103
Carbon Dioxide 29
BUN 17
Creatinine 0.6
Glucose 141 H
Calcium 8.4
Vital Signs:
Vital Signs
Temp Pulse Resp BP Pulse Ox
98.5 F 98 32 134/76 98
02/21/25 12:49 02/21/25 11:07 02/21/25 11:07 02/21/25 10:00 02/21/25 11:09
I&O
02/20/25 02/21/25 02/22/25
06:59 06:59 06:59
Intake Total 830 / 830 480 / 480 120 / 120
Output Total 800 / 800
Balance 830 / 830 -320 / -320 120 / 120
Review of Systems
-
All other systems: Reviewed and negative
Physical Exam
-
General: Respiratory Distress (With movement)
HEENT: Moist Mucous Membranes, Anicteric, PERRLA and Oxygen (HFNC )
Respiratory: Wheezes, Rales and Rhonchi; Negative Accessory Resp Muscle Use
Cardiac: Regular Rhythm, S1/S2 and Murmur; Negative Rub or Gallop
GI: Soft, Nontender, Nondistended and Normal Bowel Sounds
Musculoskeletal: No Edema
Skin: Warm and Dry; Negative Rash, Ulcers or Lesions
Neuro: Awake, Alert, Oriented, AO x 3, No Motor Deficits and Nonfocal/Grossly Intact
Psych: Calm
Data Reviewed
-
CT Scan: Image personally visualized and interpreted, Report Reviewed by me, Discussed with Physician, Discussed with Patient and Discussed with Family
Labs: Labs Reviewed by me, Discussed with Physician, Discussed with Patient and Discussed with Family
[2025-02-21] MEDS: FERRLECIT 110 MG IV (14:57)
--- NOTE | 2025-02-21 15:14 | PTCARENOTE ---
Pt's Oxygen requirements continue to increase. Currently max on HF with NRB mask. Sat 88-90%. PRN meds given. Pt now left side laying. wound care completed.
--- NOTE | 2025-02-21 15:15 | WOUNDNOTE ---
L ANKLE (MEDIAL POSTERIOR)
--- NOTE | 2025-02-21 15:18 | WOUNDNOTE ---
[facility] RN note: Patient admitted with sepsis.
See H&P for complete history.
PMH: DM, HTN, CHF, retinopathy, lumbar spinal stenosis, anxiety, allergic rhinitis, SBO, hysterectomy, cholecystectomy, Moh's last December.
Wound Location and type/assessment: Patient admitted with: L medial ankle full thickness to subcutaneous layer old Moh's site wound pink with some white tissue. + Palpable L pedal pulse. She is followed by bench loom weaver and gets a graft of some
sort. Current wound care is clean with saline, Aquaphor ointment and cover dressing daily as per ZANDRA Lopez who spoke with patient's daughter. ZANDRA Lopez reports patient's sacrum is blanchable red. Skin on heels intact. She is having SOB and has
high flow and re-breather mask on.
Appetite: fair. Patient very thin.
Pressure redistribution devices in place: Centrella Max air. Air chair cushion.
Plan: LLE dressing changed. Heels off bed with air chair cushion. Padded o2 strap around ear and R facial cheek with silicone foam. RN to apply to L side when patient turned to R side.
Will confirm orders with Dr. Johnson.
Updated care plan and will follow as needed.
--- NOTE | 2025-02-21 15:35 | PTCARENOTE ---
RN assisted mri tech with Echo procedure. Pt remains on HF with NRB mask. Sat 87-88%
--- NOTE | 2025-02-21 17:13 | W.PN.UPDATE ---
Update Note
Progress Note Update
Pt seen again for worsening hypoxia, 90% HFNC + NRB and O2 sat was 88%
RN placed pt on L side and O2 sat improving to 93%
-stat albuterol neb
stat CXR
stat labs (CBC, BMP, trop)
checked EKG and echo today
lasix 20mg IV x1
c/t monitor closely in IMU
31 min spent in critical care at pt's bedside
pt DNR/DNI
[2025-02-21 17:37] LABS: Glucose - Point of Care 269 mg/dl (70-99)
[2025-02-21] MEDS: LASIX 20 MG IV (17:56)
[2025-02-21] MEDS: LIPITOR 20 MG PO (18:25)
[2025-02-21] MEDS: LOVENOX 40 MG SC (18:25)
[2025-02-21 18:48] LABS: Hematocrit 28.3 % (37.0-47.0); Hemoglobin 9.7 g/dL (12.0-16.0); Mean Corp Hgb Conc. 34.3 g/dL (33.0-37.0); Mean Corpuscular Volume 91.6 fL (81.0-99.0); Nucleated Red Blood Cells % 0 %; Platelet Count 598 10^3/uL (130-400); Red Cell Dist. Width 12.9 % (11.5-14.5)
[2025-02-21 18:59] LABS: ALT (SGPT) 97 U/L (0-35); AST (SGOT) 83 U/L (14-36); Albumin 3.5 g/dl (3.5-5.0); Alkaline Phosphatase 112 U/L (38-126); Blood Urea Nitrogen 21 mg/dl (7-17); Calcium 8.7 mg/dl (8.4-10.2); Carbon Dioxide 27 mmol/L (22-30); Chloride 99 mmol/L (98-107); Estimated Creatinine Clearance 47 ml/min; Glucose 292 mg/dl (70-99); Potassium 3.9 mmol/L (3.5-5.1); Sodium 134 mmol/L (135-145); Total Protein 6.5 g/dl (6.3-8.2); eGFR > 60.00
[2025-02-21 19:15] LABS: Troponin I 0.044 ng/ml
[2025-02-21] MEDS: MORPHINE SULFATE 1 MG IV (19:46)
[2025-02-21 22:23] LABS: Glucose - Point of Care 213 mg/dl (70-99)
[2025-02-21] MEDS: COZAAR 25 MG PO (23:27)
[2025-02-22] VITALS (12 sets, daily range): BP systolic 104–152; BP diastolic 48–102; BMI 20.2
[2025-02-22] MEDS: ATIVAN 0.5 MG PO ×2 (01:22→19:26)
[2025-02-22 02:17] LABS: Troponin I 0.062 ng/ml
--- NOTE | 2025-02-22 05:36 | PTCARENOTE ---
Pt with increased WOB having difficulty keeping pulse ox above 86% with HFNC and NRB. Notified INSOLE AND OUTSOLE PREPARER. 1x dose of Morphine 1 mg ordered and administered (see SEP). Respirations decreased and pulse ox above 90%. 1x PRN dose of Ativan administered
to pt to help decreased respiratory rate. Complete bed change and CHG bath. PW in place; unable to use bed taveras or BSC d/t desat to 60s on exertion. Pt resting in bed with call connelly in reach.
[2025-02-22] MEDS: MAXIPIME 1000 MG IV ×4 (06:19→21:50)
[2025-02-22] MEDS: STERILE WATER FOR INJECTION 10 ML IV ×5 (06:20→21:50)
[2025-02-22 06:39] LABS: Hematocrit 26.2 % (37.0-47.0); Hemoglobin 9.1 g/dL (12.0-16.0); Mean Corp Hgb Conc. 34.7 g/dL (33.0-37.0); Mean Corpuscular Volume 91.6 fL (81.0-99.0); Nucleated Red Blood Cells % 0 %; Platelet Count 563 10^3/uL (130-400); Red Cell Dist. Width 12.8 % (11.5-14.5)
[2025-02-22 07:03] LABS: Blood Urea Nitrogen 24 mg/dl (7-17); Calcium 8.4 mg/dl (8.4-10.2); Carbon Dioxide 28 mmol/L (22-30); Chloride 99 mmol/L (98-107); Estimated Creatinine Clearance 55 ml/min; Glucose 279 mg/dl (70-99); Magnesium 1.9 mg/dl (1.6-2.3); Potassium 3.6 mmol/L (3.5-5.1); Sodium 135 mmol/L (135-145); eGFR > 60.00
[2025-02-22 07:20] LABS: Troponin I 0.046 ng/ml
[2025-02-22] MEDS: DUONEB 3 ML INH ×4 (07:29→19:27)
[2025-02-22 09:33] LABS: Glucose - Point of Care 305 mg/dl (70-99)
[2025-02-22] MEDS: MUCINEX 600 MG PO ×2 (10:03→19:26)
[2025-02-22] MEDS: ZITHROMAX 500 MG PO (10:03)
[2025-02-22] MEDS: PROZAC 40 MG PO (10:03)
[2025-02-22] MEDS: COREG 3.125 MG PO ×2 (10:03→19:26)
[2025-02-22] MEDS: LANTUS 0.2 UNITS SC (10:04)
[2025-02-22] MEDS: LASIX 20 MG IV (10:04)
[2025-02-22] MEDS: SOLU-MEDROL PF 250 MG IV (10:04)
[2025-02-22] MEDS: NOVOLOG FLEXPEN-HIGH RESISTANCE 10 UNITS SC (10:05)
[2025-02-22] MEDS: NOVOLOG FLEXPEN 10 UNITS SC ×2 (10:05→22:50)
[2025-02-22] MEDS: HYDROPHOR 1 APPLIC TOPICAL (10:11)
--- NOTE | 2025-02-22 10:38 | W.PN.PUL.V3 ---
Today's Communication / Plan
-
Prognosis unfortunately for-not responding to aggressive therapy, which includes diuresis, antibiotics, and steroids.
Comfort a priority-Ativan, morphine, etc.
Assessment
-
Patient is a very pleasant female with history of diabetes, hypertension, hyperlipidemia presented with worsening shortness of breath. Patient reported feeling poorly for about a week now, reported chills at home along with clear to yellowish
expectoration and subjective fever. She was evaluated in the emergency room where she was noted to have bilateral lower lobe infiltrates. She was suggested to have bilateral pneumonia along with possibly heart failure exacerbation. She was
admitted to the hospital was started on diuretics as well as antibiotics. Pulmonary consultation today was requested for further input. Patient was seen in pulmonary clinic earlier this year for chronic cough and had a CT scan performed which was
concerning for possible interstitial lung disease, NSIP pattern. Patient also had pulmonary function testing performed which was suggestive of moderate to severe restrictive lung function and she was not able to perform DLCO assessment however.
#1. Acute hypoxic respiratory failure with bilateral Pneumonia vs ILD flare
-02/20, increasing dyspnea, increasing oxygen requirement. Patient transition to high flow nasal cannula, transferred to IMU. Stat chest x-ray suggestive of worsening infiltrates
-CT chest 02/20/2025-imaging suggestive of mosaic pattern and worsening interstitial infiltrates concerning for underlying ILD exacerbation, ?NSIP/AIP
Chest x-ray 02/21/2025-bilateral opacifications increased from most recent radiographs likely representing increased inflammation
- Patient has been on ceftriaxone and azithromycin. Discontinued ceftriaxone and start cefepime. MRSA screen negative
- Negative Legionella and strep pneumo antigen
Leukocytosis persists-may have component of steroid effect
- Started pulse dose steroid, initially methylprednisolone 250 mg IV daily for 3 days- then will start 1 mg/kg prednisone daily
- Titrate FiO2, keep saturations above 90%-remains on high flow
#2. Suspected underlying interstitial lung disease (ILD) with acute worsening
-Patient has chronic cough for which she was evaluated at [facility] pulmonary clinic.
-PFT 10/22/2024:� Moderate-borderline severe restrictive lung defect.� No evidence of an obstructive lung defect.� Patient unable to perform DLco maneuver, per electronic lab technician.� Data: FEV1/FVC: 82 / 114% predicted, FEV1: 1.3L / 87%, FVC: 1.58L / 78%, TLC:
57%, VC: 79%, ERV: 206%, RV: 47%.
- Moderate to severe restrictive pattern noted on pulmonary function test, without evidence of obstruction. No reported history of smoking
- CT chest from earlier this year suggestive of interstitial pneumonitis, ?NSIP pattern
- CT chest, 02/2025, significantly worsened interstitial opacities with mosaic pattern concerning for ILD flare.
-Pulse dose steroids started. In view of fever and elevated white count, concomitant infection cannot be ruled out, continue broad-spectrum antibiotics. Patient unlikely to tolerate bronchoscopy and BAL and at risk of needing mechanical
ventilation, hold off for now.
Finished 3 days of Solu-Medrol 250 mg, pulse-begin methylprednisolone 60 mg IV every 12 hours
- Patient has been on Breo at home along with as needed albuterol. No obstructive airway disease noted on pulmonary function testing.
#3. Pulmonary HTN
- PASP 45 mm on ECHO with normal RV size and function
- ? Group II with Moderate Mitral stenosis. Needs cardiology evaluation.
#4. Moderate Mitral stenosis. Pulmonary edema also in differential diagnosis. Patient appears euvolemic on exam and mosaic pattern noted on CT more suggestive of ILD rather than Pulmonary edema. if patient continues to decline, might need to
consider RHC.
Other medical diagnoses:
- Anemia
- Mild hyponatremia
- DM-II, hyperglycemia worse with IV steroids. Management per primary team, consider insulin infusion, steroids switched to PO Prednisone at 30 mg daily
- HTN
Data:
CXR 02/2025: There is new airspace disease involving the majority of the left lower and patchy airspace disease in the right lower lobe. Findings are consistent with a diffuse pneumonia
CT Head 02/2025: There are mild changes of cortical atrophy and chronic ischemic disease, stable from prior study
CT Chest 10/2024: 1. MODERATE INFLAMMATORY INTERSTITIAL PNEUMONITIS in the lungs which has increased since 11/15/2021 (possibly nonspecific interstitial pneumonitis (NSIP) or drug reaction given the absence of honeycombing).
2. Mild to moderate elevation of the right hemidiaphragm.
3. Small calcified pulmonary granulomas in the left lower lobe.
4. Mild mediastinal lymphadenopathy.
5. Severe calcification in the mitral annulus.
ECHO 01/2025: Normal left ventricular size, wall thickness and systolic function. No regional
wall motion abnormalities are seen. LV ejection fraction is 60-65%.
Moderate mitral stenosis with mean gradient of 7 mmHg and mild mitral
regurgitation.
Mild aortic stenosis with peak/mean gradients of 29/19 mmHg respectively,
aortic valve area 1.1 cm2.
Compared to previous echo from September 2023, mitral valve mean gradient was 5
mmHg at that time, no other significant change.
[facility] 10/2020: 1. Nonobstructive coronary disease
2. Preserved left ventricular systolic function
Subjective Data
-
Date of Service:
Date of Service: February 22, 2025
Chief Complaint: Pulmonary Follow Up and Dyspnea Follow Up
Subjective:
Increased shortness of breath, now on nonrebreather. As well, did not respond to diuresis, anxiety persists, no chest pain or abdominal pain
Review of Systems
General: Other ( per HPI)
Objective Data
Data Reviewed
Vital Signs / I&O:
Vital Signs
Temp Pulse Resp BP Pulse Ox
97.7 F 115 18 104/52 92
02/22/25 03:12 02/22/25 07:31 02/22/25 07:31 02/22/25 04:00 02/22/25 07:31
Intake and Output
02/21/25 02/22/25 02/23/25
06:59 06:59 06:59
Intake Total 480 / 480 120 / 120
Output Total 800 / 800 1000 / 1000
Balance -320 / -320 -880 / -880
SaO2: 92
Nasal Cannula flow liters per minute: 55
Physical Exam
General: Respiratory Distress (Mild) and Comfortable (n)
HEENT: Normocephalic and Anicteric
Cardiovascular: Regular Rhythm and Murmur
Respiratory: Wheeze (n), Crackles (Rare left basilar), Rhonchi, Non-Labored Respirations, Accessory Resp Muscle Use (n) and Stridor (n)
GI: Soft, Non Distended and Non Tender
Neurology: Awake, Alert and No Motor Deficits
Skin: Warm, Good Color, Cyanosis (n) and Jaundice (n)
Labs/Micro/Reports
Lab Data
02/22/25 06:24
02/22/25 06:24
Microbiology
02/17/25 12:20 Blood/Venous Blood Culture - Preliminary
No Growth in 4 days- Final report to follow
02/17/25 12:20 Blood/Venous Blood Culture - Preliminary
No Growth in 4 days- Final report to follow
02/19/25 17:13 Nose MRSA Screen - Final
No Methicillin Resistant Staphylococcus aureus isolated.
02/19/25 18:25 Urine Legionella Urinary Antigen - Final
Negative for Legionella pneumophila Serogroup 1 antigen.
A negative result does not rule out the possiblity of
Legionella infection due to other serogroups or species of
Legionella. Clinical correlation is recommended.
02/19/25 18:25 Urine Streptococcus pneumoniae Antigen (M - Final
Negative for Streptococcus pneumoniae antigen.
A negative result does not exclude infection with
Streptococcus pneumoniae. Clinical correlation is
recommended.
[2025-02-22 12:32] LABS: Glucose - Point of Care 294 mg/dl (70-99)
--- NOTE | 2025-02-22 12:54 | W.PN.HOSP.TC ---
Today's Communication/Plan
-
IV steroids
IV antibiotics
nebs/pulm toilet
HFNC
Adjust insulin
Assessment / Plan
Assessment / Plan
89F with DM 2, CHF, HTN, HLD, asthma/COPD who presents with difficulty breathing, found to have pneumonia. Has decompensated since admission, now requiring high flow nasal cannula and desaturating with minimal effort.
PLAN:
1. Sepsis secondary to pneumonia, suspect viral pneumonia
Non-specific interstitial pneumonitis
CXR on admission shows pneumonia, patient with leukocytosis and tachycardia. Still with leukocytosis.
Blood cultures x 2 NGTD. Flu negative. COVID negative., Strep and Legionella antigen negative. MRSA screen negative.
Continue with azithromycin, change to oral. Antibiotic escalated to cefepime, day 2/5.
CT reviewed and discussed with Dr. Lipscomb, more closely resembles viral PNA, also in NSIP pattern, could be steroid responsive so will continue sterods (IV solu-medrol for 3 days).
2. Acute hypoxic respiratory failure
multifactorial, see #1, CXR also with concern for ARDS
at baseline has chronic bronchitis, due to h/o secondhand smoke
Oxygen requirement significantly trended up. Req 3L on admit, then went to 6 L to 12 L to 15 L with nonrebreather w/in 24h. Patient is now transition to high flow nasal cannula 55/ 90% FIO2.
pulmonary toilet
ativan prn anxiety
Continue with nebulizer.
Supportive care with IS and mucinex.
Resume IV Lasix 20 mg daily
3. resolved - Acute decompensated CHF
likely secondary to valvular disease
Echo reviewed 01/2025, mod MS/mild MR, Mild , no RWMA
Pro�BNP 3800
CT chest does not show pleural effusion or pulm edema
Hold further diuretics.
pt c/o chest heaviness throughout admission, checked echo and EKG and troponin. Troponin peaked at 0.062 and came down. Echo with no regional wall monitor motion abnormalities, moderate AAS, mild MS and no vegetation
4. Anemia
Normocytic, could be secondary to sepsis and noted to be iron deficient
IV iron day 10/09
5. resolved - hyponatremia
Mild, asymptomatic continue to monitor
hold lasix
monitor
6. DM 2 with hyperglycemia
Worsened due to steroids
Received 26 units sliding scale insulin yesterday,
Lantus increased to 33 units
Continue with high insulin sliding scale regimen
Holding metformin
7. HTN
BP controlled, continue home meds losartan/coreg
Patient is DNR. If she is unable to be weaned from HFNC will need to discuss palliative care.
DVT PPx�Lovenox
Anticipated Discharge: > 48 hours
Subjective/Interval History
-
Date of Service: February 22, 2025
Patient feeling very short of breath with small movements, feels that she has mucus that she cannot bring up. Discussed with pulmonology at bedside
Objective Data
-
Labs:
Laboratory Results
02/22/25
06:24
WBC 22.4 H
Hgb 9.1 L
Hct 26.2 L
Plt Count 563 H
Sodium 135
Potassium 3.6
Chloride 99
Carbon Dioxide 28
BUN 24 H
Creatinine 0.6
Glucose 279 H
Calcium 8.4
Vital Signs:
Vital Signs
Temp Pulse Resp BP Pulse Ox
98.3 F 87 27 148/102 97
02/22/25 11:15 02/22/25 12:00 02/22/25 12:00 02/22/25 12:00 02/22/25 12:12
I&O
02/21/25 02/22/25 02/23/25
06:59 06:59 06:59
Intake Total 480 / 480 120 / 120 360 / 360
Output Total 800 / 800 1000 / 1000
Balance -320 / -320 -880 / -880 360 / 360
Review of Systems
-
All other systems: Reviewed and negative
Physical Exam
-
General: Respiratory Distress (With movement)
HEENT: Moist Mucous Membranes, Anicteric, PERRLA and Oxygen (HFNC )
Respiratory: Rales and Rhonchi; Negative Wheezes or Accessory Resp Muscle Use
Cardiac: Regular Rhythm, S1/S2 and Murmur; Negative Rub or Gallop
GI: Soft, Nontender, Nondistended and Normal Bowel Sounds
Musculoskeletal: No Edema
Skin: Warm and Dry; Negative Rash, Ulcers or Lesions
Neuro: Awake, Alert, Oriented, AO x 3, No Motor Deficits and Nonfocal/Grossly Intact
Psych: Calm
Data Reviewed
-
CT Scan: Image personally visualized and interpreted, Report Reviewed by me, Discussed with Physician, Discussed with Patient and Discussed with Family
Labs: Labs Reviewed by me, Discussed with Physician, Discussed with Patient and Discussed with Family
[2025-02-22] MEDS: FERRLECIT 110 MG IV (13:13)
[2025-02-22] MEDS: NOVOLOG FLEXPEN-HIGH RESISTANCE 7 UNITS SC (13:14)
[2025-02-22] MEDS: NOVOLOG FLEXPEN 14 UNITS SC ×2 (13:22→17:27)
[2025-02-22] MEDS: NOVOLOG FLEXPEN SC (13:32)
--- NOTE | 2025-02-22 15:48 | PTCARENOTE ---
Pt's assessment as documented. Aox3, very pleasant. NSR on tele monitor. Pt maxed on HFNC with NRB. Desats to 60's with minimal exertion and recovers slowly. Family at bedside, updated on plan of care. Emotional support provided. Ringing
appropriately, call connelly within reach.
[2025-02-22] MEDS: LOVENOX 40 MG SC (17:26)
[2025-02-22] MEDS: LIPITOR 20 MG PO (17:26)
[2025-02-22] MEDS: KCL ELIXIR 40 MEQ PO (17:26)
[2025-02-22] MEDS: NOVOLIN N vial 0.13 UNITS SC (17:27)
[2025-02-22] MEDS: NOVOLOG FLEXPEN-HIGH RESISTANCE 4 UNITS SC (17:27)
[2025-02-22 17:30] LABS: Glucose - Point of Care 207 mg/dl (70-99)
[2025-02-22] MEDS: COZAAR 25 MG PO (19:26)
[2025-02-22] MEDS: MORPHINE SULFATE 1 MG IV (19:35)
[2025-02-22] MEDS: SOLU-MEDROL PF 60 MG IV (21:50)
[2025-02-22 22:43] LABS: Glucose - Point of Care 339 mg/dl (70-99)
--- NOTE | 2025-02-22 22:46 | PTCARENOTE ---
Patient evening blood sugar 339. boilermaker pipe fitter provider made aware and ordered 10 units novolog x1.
[2025-02-23] VITALS (8 sets, daily range): BP systolic 112–141; BP diastolic 43–76; BMI 20.2
--- NOTE | 2025-02-23 02:44 | DOWNTIME ---
There was a [employer] Downtime on 02/23/2025 from 0100 to 02/23/2025 at 0235. Downtime documentation of patient's care, including medication administrations, has been reconciled in the electronic record per guidelines. Refer to the
patient's paper chart under the miscellaneous tab to see printed paper medication records and downtime forms.
--- NOTE | 2025-02-23 04:50 | PTCARENOTE ---
Patient remained on HFNC + NRB overnight. Patient desats to the high 70s when moving in the bed. PRN morphine and ativan given with positive results. Will continue to monitor.
[2025-02-23] MEDS: MAXIPIME 1000 MG IV (06:05)
[2025-02-23] MEDS: STERILE WATER FOR INJECTION 10 ML IV (06:06)
[2025-02-23] MEDS: DUONEB 3 ML INH ×2 (07:28→11:36)
--- NOTE | 2025-02-23 07:30 | PTCARENOTE ---
On walking rounds , Py on HF 50 liters 100% O2 and non rebreather desating to 70 with any slight movement. Pt lungs are coarse with crackles . Pt is AAOx3.
[2025-02-23 07:50] LABS: Glucose - Point of Care 227 mg/dl (70-99)
[2025-02-23] MEDS: MORPHINE SULFATE 1 MG IV (08:13)
[2025-02-23] MEDS: ATIVAN 0.5 MG PO (08:16)
[2025-02-23] MEDS: COREG 3.125 MG PO (08:16)
[2025-02-23] MEDS: PROZAC 40 MG PO (08:17)
[2025-02-23] MEDS: ZITHROMAX 500 MG PO (08:18)
[2025-02-23] MEDS: LASIX 20 MG IV (08:18)
[2025-02-23] MEDS: MUCINEX 600 MG PO (08:19)
[2025-02-23] MEDS: NOVOLOG FLEXPEN-HIGH RESISTANCE 7 UNITS SC (08:33)
[2025-02-23] MEDS: NOVOLOG FLEXPEN 14 UNITS SC (08:34)
[2025-02-23] MEDS: LANTUS 0.33 UNITS SC (08:36)
[2025-02-23 08:45] LABS: Glucose - Point of Care 255 mg/dl (70-99)
--- NOTE | 2025-02-23 09:10 | PTCARENOTE ---
Pt told Yaniv Encarnacion she wanted to be comfortable family in agreement. Dr Johnson notified for Hospice consult
--- NOTE | 2025-02-23 10:23 | W.PN.PUL.V3 ---
Today's Communication / Plan
-
Dr. Lipscomb had conversation with daughter and nurse at the bedside-patient no longer wishes to pursue therapies for her underlying condition that she has not improved and wants to be comfortable and transition to hospice.
Dr. Lipscomb spoke to hospitalist-they will be contacting case management and hospice and the patient will be discharged and readmitted to inpatient hospice.
Assessment
-
Patient is a very pleasant female with history of diabetes, hypertension, hyperlipidemia presented with worsening shortness of breath. Patient reported feeling poorly for about a week now, reported chills at home along with clear to yellowish
expectoration and subjective fever. She was evaluated in the emergency room where she was noted to have bilateral lower lobe infiltrates. She was suggested to have bilateral pneumonia along with possibly heart failure exacerbation. She was
admitted to the hospital was started on diuretics as well as antibiotics. Pulmonary consultation today was requested for further input. Patient was seen in pulmonary clinic earlier this year for chronic cough and had a CT scan performed which was
concerning for possible interstitial lung disease, NSIP pattern. Patient also had pulmonary function testing performed which was suggestive of moderate to severe restrictive lung function and she was not able to perform DLCO assessment however.
#1. Acute hypoxic respiratory failure with bilateral Pneumonia vs ILD flare-ARDS
-02/20, increasing dyspnea, increasing oxygen requirement. Patient transition to high flow nasal cannula, transferred to IMU. Stat chest x-ray suggestive of worsening infiltrates
-CT chest 02/20/2025-imaging suggestive of mosaic pattern and worsening interstitial infiltrates concerning for underlying ILD exacerbation, ?NSIP/AIP
Chest x-ray 02/21/2025-bilateral opacifications increased from most recent radiographs likely representing increased inflammation
- Patient has been on ceftriaxone and azithromycin. Discontinued ceftriaxone and start cefepime. MRSA screen negative
- Negative Legionella and strep pneumo antigen
Leukocytosis persists-may have component of steroid effect
- Started pulse dose steroid, initially methylprednisolone 250 mg IV daily for 3 days- then will start 1 mg/kg prednisone daily
- Titrate FiO2, keep saturations above 90%-remains on high flow
#2. Suspected underlying interstitial lung disease (ILD) with acute worsening
-Patient has chronic cough for which she was evaluated at [facility] pulmonary clinic.
-PFT 10/22/2024:� Moderate-borderline severe restrictive lung defect.� No evidence of an obstructive lung defect.� Patient unable to perform DLco maneuver, per holter technician.� Data: FEV1/FVC: 82 / 114% predicted, FEV1: 1.3L / 87%, FVC: 1.58L / 78%, TLC:
57%, VC: 79%, ERV: 206%, RV: 47%.
- Moderate to severe restrictive pattern noted on pulmonary function test, without evidence of obstruction. No reported history of smoking
- CT chest from earlier this year suggestive of interstitial pneumonitis, ?NSIP pattern
- CT chest, 02/2025, significantly worsened interstitial opacities with mosaic pattern concerning for ILD flare.
-Pulse dose steroids started. In view of fever and elevated white count, concomitant infection cannot be ruled out, continue broad-spectrum antibiotics. Patient unlikely to tolerate bronchoscopy and BAL and at risk of needing mechanical
ventilation, hold off for now.
Finished 3 days of Solu-Medrol 250 mg, pulse-begin methylprednisolone 60 mg IV every 12 hours
- Patient has been on Breo at home along with as needed albuterol. No obstructive airway disease noted on pulmonary function testing.
#3. Pulmonary HTN
- PASP 45 mm on ECHO with normal RV size and function
- ? Group II with Moderate Mitral stenosis. Needs cardiology evaluation.
#4. Moderate Mitral stenosis. Pulmonary edema also in differential diagnosis. Patient appears euvolemic on exam and mosaic pattern noted on CT more suggestive of ILD rather than Pulmonary edema. if patient continues to decline, might need to
consider RHC.
Other medical diagnoses:
- Anemia
- Mild hyponatremia
- DM-II, hyperglycemia worse with IV steroids. Management per primary team, consider insulin infusion, steroids switched to PO Prednisone at 30 mg daily
- HTN
.
Dr. Lipscomb had conversation with daughter and nurse at the bedside-patient no longer wishes to pursue therapies for her underlying condition that she has not improved and wants to be comfortable and transition to hospice.
Dr. Lipscomb spoke to hospitalist-they will be contacting case management and hospice and the patient will be discharged and readmitted to inpatient hospice.
Data:
CXR 02/2025: There is new airspace disease involving the majority of the left lower and patchy airspace disease in the right lower lobe. Findings are consistent with a diffuse pneumonia
CT Head 02/2025: There are mild changes of cortical atrophy and chronic ischemic disease, stable from prior study
CT Chest 10/2024: 1. MODERATE INFLAMMATORY INTERSTITIAL PNEUMONITIS in the lungs which has increased since 11/15/2021 (possibly nonspecific interstitial pneumonitis (NSIP) or drug reaction given the absence of honeycombing).
2. Mild to moderate elevation of the right hemidiaphragm.
3. Small calcified pulmonary granulomas in the left lower lobe.
4. Mild mediastinal lymphadenopathy.
5. Severe calcification in the mitral annulus.
ECHO 01/2025: Normal left ventricular size, wall thickness and systolic function. No regional
wall motion abnormalities are seen. LV ejection fraction is 60-65%.
Moderate mitral stenosis with mean gradient of 7 mmHg and mild mitral
regurgitation.
Mild aortic stenosis with peak/mean gradients of 29/19 mmHg respectively,
aortic valve area 1.1 cm2.
Compared to previous echo from September 2023, mitral valve mean gradient was 5
mmHg at that time, no other significant change.
[facility] 10/2020: 1. Nonobstructive coronary disease
2. Preserved left ventricular systolic function
Subjective Data
-
Date of Service:
Date of Service: February 23, 2025
Chief Complaint: Pulmonary Follow Up and Dyspnea Follow Up
Subjective:
Patient continues to struggle to breathe, express to me. She no longer wants to fight this and is ready to go-daughter was present during our conversation, she no longer wants any therapy and just wants to be kept comfortable
Review of Systems
General: Other ( per HPI)
Objective Data
Data Reviewed
Vital Signs / I&O:
Vital Signs
Temp Pulse Resp BP Pulse Ox
98.5 F 101 20 128/43 94
02/23/25 03:02 02/23/25 08:16 02/23/25 07:34 02/23/25 08:16 02/23/25 08:00
Intake and Output
02/22/25 02/23/25 02/24/25
06:59 06:59 06:59
Intake Total 120 / 120 610 / 610
Output Total 1000 / 1000 650 / 650
Balance -880 / -880 -40 / -40
SaO2: 94
Nasal Cannula flow liters per minute: 55
Physical Exam
General: Respiratory Distress (Mild) and Comfortable (n)
HEENT: Normocephalic and Anicteric
Cardiovascular: Regular Rhythm and Murmur
Respiratory: Wheeze (n), Crackles (Rare left basilar), Rhonchi, Non-Labored Respirations, Accessory Resp Muscle Use (n) and Stridor (n)
GI: Soft, Non Distended and Non Tender
Neurology: Awake, Alert and No Motor Deficits
Skin: Warm, Good Color, Cyanosis (n) and Jaundice (n)
Labs/Micro/Reports
Lab Data
02/22/25 06:24
02/22/25 06:24
Microbiology
02/17/25 12:20 Blood/Venous Blood Culture - Final
No Growth - Final Report
02/17/25 12:20 Blood/Venous Blood Culture - Final
No Growth - Final Report
02/19/25 17:13 Nose MRSA Screen - Final
No Methicillin Resistant Staphylococcus aureus isolated.
02/19/25 18:25 Urine Legionella Urinary Antigen - Final
Negative for Legionella pneumophila Serogroup 1 antigen.
A negative result does not rule out the possiblity of
Legionella infection due to other serogroups or species of
Legionella. Clinical correlation is recommended.
02/19/25 18:25 Urine Streptococcus pneumoniae Antigen (M - Final
Negative for Streptococcus pneumoniae antigen.
A negative result does not exclude infection with
Streptococcus pneumoniae. Clinical correlation is
recommended.
--- NOTE | 2025-02-23 10:51 | CM ---
Patient seen at bedside in IMU with patient daughter also present. Patient stated that she wanted to talk about being comfortable and that she was interested in comfort. Patient daughter in agreement. CM spoke with liaison with regard to referral
and she will follow. CM will continue to follow for discharge planning needs.
Plan; hospice; pending assessment
--- NOTE | 2025-02-23 10:52 | HOSPNOTE ---
Addendum entered by Twyla Cortes RN 02/23/25 13:00:
Patient will remain on comfort care today, I will evaluate tomorrow for inpatient hospice if the patient survives the night. Family at bedside. Will continue to follow.
Original Note:
Spoke with patient and family and the patient wishes to be made comfortable. I explained comfort care and the medications that we use. The patient is very anxious and will most likely need a morphine drip. Will await to speak with attending.
[2025-02-23] MEDS: SOLU-MEDROL PF IV (11:46)
--- NOTE | 2025-02-23 11:46 | W.DCSUMMARY ---
Discharge Summary
Discharge Data
Date of Admission: 02/17/25
Date of Discharge: 02/23/25
Total time spent discharging patient (in min): 45
-
Pending Results: No
Discharge Plan
-
Patient Disposition: Hospice - Inpatient [facility]
Discharge Orders:
Discharge Patient (As Directed); Ordered 02/23/25
Ordered By: Lelia Johnson
Discharge Date and Time
Print Language: [place]
--- NOTE | 2025-02-23 11:46 | ADM.HSP ---
Admission - Hospice
Reason for Hospice Admission
ARDS
Physical Exam
Temp Pulse Resp BP Pulse Ox
98.5 F 86 23 131/73 98
02/23/25 03:02 02/23/25 11:38 02/23/25 11:38 02/23/25 10:00 02/23/25 11:38
Assessment/Medication Plan
Generic Name Dose Route Start Last Admin
Trade Name Freq PRN Reason Stop Dose Admin
Acetaminophen 650 mg 02/17/25 13:52 02/21/25 00:45
Acetaminophen 325 Mg Tablet PO 03/17/25 13:51 650 mg
Q4HPRN PRN Administration
mild pain/SOLORIO/temp> 100.4F
Albuterol/Ipratropium 3 ml 02/19/25 03:58 02/21/25 16:18
Ipratropium 0.5/Albuterol 3 Mg (3 Ml Ampul) INH 3 ml
R Q4HPRN PRN Administration
sob
Protocol
Albuterol/Ipratropium 3 ml 02/19/25 12:00 02/23/25 11:36
Ipratropium 0.5/Albuterol 3 Mg (3 Ml Ampul) INH 3 ml
R QID YOHAN Administration
Protocol
Atorvastatin Calcium 20 mg 02/17/25 18:00 02/22/25 17:26
Atorvastatin (Lipitor) 20 Mg Tablet PO 03/17/25 17:59 20 mg
QPM YOHAN Administration
Azithromycin 500 mg 02/22/25 08:00 02/23/25 08:18
Azithromycin 250 Mg Tablet PO 500 mg
DAILY YOHAN Administration
Bisacodyl 10 mg 02/17/25 13:52
Bisacodyl 10 Mg Rectal Suppository RECTAL 03/17/25 13:51
[id number] PRN
constipation
Budesonide/Formoterol Fumarate 2 puff 02/17/25 20:00 02/19/25 07:44
Symbicort Inhaler 160/4.5 INH 03/17/25 19:59 2 puff
On Hold: 02/19/25 10:55 R BID YOHAN Administration
Carvedilol 3.125 mg 02/17/25 20:00 02/23/25 08:16
Carvedilol 3.125 Mg Tablet PO 03/17/25 19:59 3.125 mg
BID YOHAN Administration
Cefepime HCl 1,000 mg 02/22/25 14:19 02/23/25 06:05
Cefepime Hcl 1,000 Mg/11.3 Ml Vial IV 1,000 mg
Q8H YOHAN Administration
Dextrose 12.5 grams 02/17/25 13:52
Dextrose 50% (0.5 Grams/Ml) 50 Ml Syringe IV 03/17/25 13:51
[id number] PRN
hypoglycemia
Protocol
Diazepam 2 mg 02/23/25 11:34
Diazepam 10 Mg/2 Ml Inj IV 03/23/25 11:33
Q2HPRN PRN
anxiety
Emollient Ointment 0 applic 02/22/25 08:00 02/22/25 10:11
Petrolatum/Mineral Oil (Hydrophor) Oint 100 Gram TOPICAL 03/22/25 07:59 1 applic
DAILY YOHAN Administration
Enoxaparin Sodium 40 mg 02/17/25 18:00 02/22/25 17:26
Enoxaparin Sodium 40 Mg/0.4 Ml Syringe SC 03/17/25 17:59 40 mg
QPM YOHAN Administration
Fluoxetine HCl 40 mg 02/18/25 08:00 02/23/25 08:17
Fluoxetine 20 Mg Capsule PO 03/18/25 07:59 40 mg
DAILY YOHAN Administration
Furosemide 20 mg 02/22/25 09:00 02/23/25 08:18
Furosemide 20 Mg (10 Mg/Ml) 2 Ml Vial IV 03/22/25 08:59 20 mg
DAILY YOHAN Administration
Glucagon 1 mg 02/17/25 13:52
Glucagon 1 Mg Vial IM 03/17/25 13:51
PRN PRN
hypoglycemia
Protocol
Glycopyrrolate 0.2 mg 02/23/25 11:34
Glycopyrrolate 0.2 Mg/Ml Vial IV 03/23/25 11:33
Q4HPRN PRN
excessive secretions
Guaifenesin 600 mg 02/18/25 20:00 02/23/25 08:19
Guaifenesin 600 Mg Extended Release Tablet PO 03/18/25 19:59 600 mg
Q12 YOHAN Administration
Hyoscyamine Sulfate 0.125 mg 02/23/25 09:55
Hyoscyamine Sulfate 0.125 Mg/Ml In Oral Syringe SL 03/23/25 09:54
Q4HPRN PRN
excessive secretions
Ferric Sodium Gluconate 110 mls @ 110 mls/hr 02/19/25 14:00 02/22/25 13:13
Complex 125 mg/ Sodium IV 02/23/25 14:59 110 mls
Chloride DAILY@1400 YOHAN Administration
Insulin Glargine 33 units/ 0.33 mls @ 0 mls/hr 02/22/25 13:00 02/23/25 08:36
Device SC 03/19/25 17:55 0.33 mls
DAILY YOHAN Administration
As Directed
Morphine Sulfate/Sodium Chloride 100 mg in 100 mls @ 0 mls/hr 02/23/25 11:45
Morphine IV
PER PROTOCOL YOHAN
Protocol
Per Protocol
Insulin Aspart 0 units 02/19/25 16:30 02/23/25 08:33
Insulin Aspart High Resistance 300 Units/3 Ml Pen.Injctr SC 03/19/25 16:29 7 units
AC YOHAN Administration
Protocol
Insulin Aspart 14 units 02/22/25 14:00 02/23/25 08:34
Insulin Aspart (Novolog) 100 Units/Ml 3 Ml Flexpen SC 03/22/25 13:59 14 units
AC YOHAN Administration
Lorazepam 0.5 mg 02/21/25 14:41 02/23/25 08:16
Lorazepam 0.5 Mg Tablet PO 03/21/25 14:40 0.5 mg
Q4HPRN PRN Administration
anxiety
Losartan Potassium 25 mg 02/17/25 22:00 02/22/25 19:26
Losartan 25 Mg Tablet PO 03/17/25 21:59 25 mg
HS YOHAN Administration
Methylprednisolone Sodium Succinate 60 mg 02/22/25 22:00 02/22/25 21:50
Methylprednisolone Pf 40 Mg/Ml Vial IV 03/22/25 21:59 60 mg
Q12H YOHAN Administration
Morphine Sulfate 0 mg 02/23/25 11:34
Morphine 2 Mg/Ml Syringe IV 03/09/25 11:33
[id number] PRN
moderate-severe pain / dyspnea
Protocol
Ondansetron HCl 4 mg 02/17/25 13:52 02/18/25 14:46
Ondansetron 4 Mg/2 Ml Vial IV 03/17/25 13:51 4 mg
Q6HPRN PRN Administration
NAUSEA/VOMITING
Pharmacy Profile Note 0 unit 02/23/25 12:[address] 1 Unit IV 03/23/25 11:59
DIRECTED YOHAN
Polyethylene Glycol 17 grams 02/17/25 13:52
Polyethylene Glycol Powder 17 Grams Packet PO 03/17/25 13:51
DAILYPRN PRN
constipation
Promethazine HCl 25 mg 02/18/25 17:01 02/18/25 17:26
Promethazine 25 Mg Tablet PO 03/18/25 17:00 25 mg
Q6HPRN PRN Administration
nausea and vomiting
Senna/Docusate Sodium 1 tablet 02/17/25 13:52
Docusate W/Senna (Jeannie-Colace) Tablet PO 03/17/25 13:51
BIDPRN PRN
constipation
Sodium Chloride 0 flush 02/17/25 15:00
Sodium Chloride 0.9% (Flush) Syringe IV 03/17/25 14:59
PER PROTOCOL YOHAN
Sodium Chloride 0 sprays 02/21/25 15:00
Sodium Chloride 0.65% Nasal [place] 45 Ml Bottle NASAL 03/21/25 14:59
QIDPRN PRN
dry nose
Sterile Water 10 ml 02/22/25 14:19 02/23/25 06:06
Sterile Water For Injection 10 Ml Vial IV 03/20/25 11:59 10 ml
Q8H YOHAN Administration
--- NOTE | 2025-02-23 11:59 | CM ---
Patient transitioning to comfort care at this time. CM will continue to follow for discharge planning needs.
Plan; comfort care
[2025-02-23] MEDS: MORPHINE 100 IV (12:08)
[2025-02-23] MEDS: MORPHINE SULFATE 2 MG IV ×3 (13:27→17:25)
--- NOTE | 2025-02-23 13:28 | W.PN.HOSP.TC ---
Today's Communication/Plan
-
Patient transition to hospice, morphine drip started for comfort. Patient appears imminent
Assessment / Plan
Assessment / Plan
89F with DM 2, CHF, HTN, HLD, asthma/COPD who presents with difficulty breathing, found to have pneumonia. Has decompensated since admission, now requiring high flow nasal cannula and desaturating with minimal effort.
PLAN:
1. Transition to comfort care
Start morphine drip
As needed IV diazepam
Oxygen for comfort
Regular diet
DC all other orders and meds
2. ARDS
Sepsis secondary to pneumonia, suspect viral pneumonia
Non-specific interstitial pneumonitis
CXR on admission shows pneumonia, patient with leukocytosis and tachycardia. Still with leukocytosis.
Blood cultures x 2 NGTD. Flu negative. COVID negative., Strep and Legionella antigen negative. MRSA screen negative.
Received and IV antibiotics and IV steroids and IV Lasix
Discontinue all now is transitioning to hospice
3. Acute hypoxic respiratory failure
multifactorial, see #1
at baseline has chronic bronchitis, due to h/o secondhand smoke
Oxygen requirement significantly trended up. Req 3L on admit, then went to 6 L to 12 L to 15 L with nonrebreather w/in 24h. Patient is now transition to high flow nasal cannula 55/ 90% FIO2.
ativan prn anxiety
Continue with nebulizer.
Supportive care with IS and mucinex.
s/p IV Lasix 20 - now off due to hospice
# resolved - Acute decompensated CHF
likely secondary to valvular disease
Echo reviewed 01/2025, mod MS/mild MR, Mild , no RWMA
Pro�BNP 3800
CT chest does not show pleural effusion or pulm edema
pt c/o chest heaviness throughout admission, checked echo and EKG and troponin. Troponin peaked at 0.062 and came down. Echo with no regional wall monitor motion abnormalities, moderate AAS, mild MS and no vegetation
4. Anemia
Normocytic, could be secondary to sepsis and noted to be iron deficient
s/p IV iron now off
5. resolved - hyponatremia
Mild, asymptomatic continue to monitor
hold lasix
monitor
6. DM 2 with hyperglycemia
Worsened due to steroids
no further accuchecks, now on hospice
7. HTN
BP controlled,hold home meds losartan/coreg due to hospice
Patient is DNR.
DVT PPx�no chemical ppx, hospice
Anticipated Discharge: 24 - 48 hours
Subjective/Interval History
-
Date of Service: February 23, 2025
This morning patient was feeling a bit worse, noting that she had more dyspnea whenever she took off her nonrebreather. Her daughter was at bedside and we discussed that she is not improving despite maximum therapies short of intubation, and the
worry is that she could crash at any time. She was later seen by pulmonology and after conversation with them and family has elected to transition to hospice.
Objective Data
-
Labs:
Laboratory Results
02/22/25
06:24
WBC 22.4 H
Hgb 9.1 L
Hct 26.2 L
Plt Count 563 H
Sodium 135
Potassium 3.6
Chloride 99
Carbon Dioxide 28
BUN 24 H
Creatinine 0.6
Glucose 279 H
Calcium 8.4
Vital Signs:
Vital Signs
Temp Pulse Resp BP Pulse Ox
98.5 F 86 23 131/73 98
02/23/25 03:02 02/23/25 11:38 02/23/25 11:38 02/23/25 10:00 02/23/25 11:38
I&O
02/22/25 02/23/25 02/24/25
06:59 06:59 06:59
Intake Total 120 / 120 610 / 610
Output Total 1000 / 1000 650 / 650
Balance -880 / -880 -40 / -40
Review of Systems
-
All other systems: Reviewed and negative
Physical Exam
-
General: Respiratory Distress (With movement)
HEENT: Moist Mucous Membranes, Anicteric, PERRLA and Oxygen (HFNC )
Respiratory: Rales and Rhonchi; Negative Wheezes or Accessory Resp Muscle Use
Cardiac: Regular Rhythm, S1/S2 and Murmur; Negative Rub or Gallop
GI: Soft, Nontender, Nondistended and Normal Bowel Sounds
Musculoskeletal: No Edema
Skin: Warm and Dry; Negative Rash, Ulcers or Lesions
Neuro: Awake, Alert, Oriented, AO x 3, No Motor Deficits and Nonfocal/Grossly Intact
Psych: Calm
Data Reviewed
-
CT Scan: Image personally visualized and interpreted, Report Reviewed by me, Discussed with Physician, Discussed with Patient and Discussed with Family
Labs: Labs Reviewed by me, Discussed with Physician, Discussed with Patient and Discussed with Family
[2025-02-23] MEDS: HYDROPHOR TOPICAL (14:04)
[2025-02-23] MEDS: STERILE WATER FOR INJECTION IV ×3 (14:06→19:14)
[2025-02-23] MEDS: NOVOLOG FLEXPEN SC (14:11)
[2025-02-23] MEDS: NOVOLOG FLEXPEN-HIGH RESISTANCE SC (14:11)
--- NOTE | 2025-02-23 17:29 | PTCARENOTE ---
Pt moaning and grimacing given 3 mg morphine moved to step 3
[2025-02-23] MEDS: MUCINEX PO (19:13)
[2025-02-23] MEDS: MORPHINE SULFATE 4 MG IV ×3 (19:33→23:38)
--- NOTE | 2025-02-23 22:18 | PTCARENOTE ---
Patient transferred to [address] [place] [id number] with family at bedside. Step 3 of morphine protocol infusing. Belongings sent with patient.
[2025-02-23] MEDS: VALIUM INJECTION 2 MG IV (22:26)
--- NOTE | 2025-02-24 00:30 | PTCARENOTE ---
Pt received from IMU in bed. Family at bedside. Pt unresponsive, moaning. Medicated w/PRN valium and morphine per orders via CPOT scale. Physical assessment completed (refer to worklist). Morphine gtt at step 3, infusing at 4mg/hr via #22 LFA.
Pt turned and positioned for comfort, 6L O2 for comfort. Purewick external cathter maintained. Foam dressings to spine an L medial leg intact. Emotional support provided to family. Call godwin w/in reach.
[2025-02-24] MEDS: VALIUM INJECTION 2 MG IV (02:19)
[2025-02-24 07:10] VITALS: BP 100/57
[2025-02-24] MEDS: HYDROPHOR TOPICAL (09:05)
[2025-02-24] MEDS: MUCINEX PO (09:13)
[2025-02-24] MEDS: PROZAC PO (09:15)
--- NOTE | 2025-02-24 10:53 | W.PN.DEATH ---
Pronouncement of
-
Called to see patient to pronounce.
No spontaneous heart tones or respirations noted.
Patient not responsive to verbal stimuli.
Patient is pronounced .
Time of : 10:10
Date of : 02/24/25
Cause of : Hypoxic Respiratory Failure
Family Notified: Yes
--- NOTE | 2025-02-24 10:54 | W.DCSUMMARY ---
Discharge Summary
Discharge Data
Date of Admission: 02/17/25
Date of Discharge: 02/24/25
Total time spent discharging patient (in min): 35
-
Pending Results: No
Hospital Course
Attending physician:
Lelia Johnson MD
Admission diagnosis:
Sepsis secondary to pneumonia
Discharge diagnosis:
ARDS
Secondary diagnoses:
Acute hypoxic respiratory failure
Acute is not compensated CHF
Anemia
Hyponatremia
DM 2
Asthma
Consultations:
Pulmonology
Procedures:
None
Hospital course:
89F with CHF and asthma/COPD secondary to secondhand smoke exposure, presented with shortness of breath. She was found to have sepsis and CXR showed pneumonia. She was treated with empiric antibiotics. CXR also showed edema and she had elevated
proBNP so she was started on IV Lasix for acute decompensated CHF. She required 2 to 3 L of oxygen on admission however she rapidly declined, becoming more dyspneic and requiring more oxygen, up to 6 L. She was therefore started on IV steroids and
pulmonology was consulted. CT chest was performed as below. Her antibiotics were broadened. Blood cultures, flu/COVID/strep/Legionella were all negative. She received IV iron for anemia that was secondary to iron deficiency. In the setting of
steroids for glucose was poorly controlled despite insulin administration. Lasix was stopped, but as she continued to worsen through her admission, with CXR showing progression to ARDS, IV Lasix were resumed. She was also treated with pulmonary
toilet with Mucinex, incentive spirometry, nebulizer treatments, however she did not respond and her oxygen requirements continued to increase until she required high flow nasal cannula as well as nonrebreather to maintain her oxygen saturations and
comfort. Due to this progression, patient and family decided to transition to inpatient hospice for comfort care on 02/23/2025. Patient was placed on a morphine drip, and as needed anxiolytics, and oxygen by nasal cannula was placed for comfort.
She on 02/24/2025 at 10:10 AM with family present at bedside.
Discharge disposition:
Discharge Plan
-
Patient Disposition:
Date/Time
Date/Time: 02/24/25 10:10
Discharge Date and Time
Discharge Date/Time: 02/24/25 10:10
Print Language: ECUADOREAN
--- NOTE | 2025-02-24 11:07 | HOSPNOTE ---
Met with family and gave them our condolences. The family has requested I call [facility] in [place] which I did and gave them all necessary information and they will arrange to come get patient this afternoon. The family was grateful
for all the care.
== END 2025-02-24 10:10 | disposition expired | DRG 871 ==
LOC: 2 NORTH 12:42
PROVIDERS: Emergency Medicine; Hospitalist; Nurse Practitioner Gerontology; Physician Assistant; ADMITTING PHYSICIAN Internal Medicine; EMERGENCY PHYSICIAN Student in an Organized Health Care Education/Training Program; FAMILY PHYSICIAN Family Medicine; OTHER PHYSICIAN Internal Medicine
PROC: 5A0935A Assistance with Respiratory Ventilation, Less than 24 Consecutive Hours, High Flow/Velocity Cannula (ICD-10-PCS; 2025-02-17)
DX: A41.9 Sepsis, unspecified organism (principal); I50.33 Acute on chronic diastolic (congestive) heart failure; J12.9 Viral pneumonia, unspecified; J80 Acute respiratory distress syndrome; E87.1 Hypo-osmolality and hyponatremia; J44.0 Chronic obstructive pulmonary disease with (acute) lower respiratory infection; J44.1 Chronic obstructive pulmonary disease with (acute) exacerbation; J84.9 Interstitial pulmonary disease, unspecified; Z66 Do not resuscitate; Z51.5 Encounter for palliative care; D50.9 Iron deficiency anemia, unspecified; E11.319 Type 2 diabetes mellitus with unspecified diabetic retinopathy without macular edema; E11.65 Type 2 diabetes mellitus with hyperglycemia; E78.00 Pure hypercholesterolemia, unspecified; F41.9 Anxiety disorder, unspecified; I05.0 Rheumatic mitral stenosis; I11.0 Hypertensive heart disease with heart failure; I27.20 Pulmonary hypertension, unspecified; I35.0 Nonrheumatic aortic (valve) stenosis; M48.061 Spinal stenosis, lumbar region without neurogenic claudication; Z11.52 Encounter for screening for COVID-19; Z88.0 Allergy status to penicillin; Z88.1 Allergy status to other antibiotic agents; Z79.4 Long term (current) use of insulin; Z79.84 Long term (current) use of oral hypoglycemic drugs; Z79.899 Other long term (current) drug therapy; Z82.5 Family history of asthma and other chronic lower respiratory diseases; Z98.1 Arthrodesis status; Z77.22 Contact with and (suspected) exposure to environmental tobacco smoke (acute) (chronic)
CPT/HCPCS: 70450; 71045; 71046; 71250; 80048; 80053; 81003; 81015; 82607; 82728; 82746; 82947; 82962; 83540; 83550; 83605; 83735; 83880; 84443; 84484; 85025; 87040; 87070; 87449; 87502; 87811; 87899; 92610; 93005; 93308; 93321; 93325; 94640; 96374; 96375; 99285; J2916